=== PATIENT | female | born 1990 | race Caucasian/White ===

== ENCOUNTER 2021-09-07 10:21 | Outpatient (CLI) | payer OTHER, SELFPAY ==
[2021-09-07 13:37] LABS: SARS-CoV-2 RNA PCR Negative (Negative)
== END 2021-09-07 10:22 | disposition home or self-care (01) ==
LOC: CHSLAB 10:22
PROVIDERS: PCP Family Medicine; Visit Provider Family Medicine
DX: R05.9 Cough, unspecified (principal); Z20.822 Contact with and (suspected) exposure to COVID-19
CPT/HCPCS: C9803; U0003; U0005

== ENCOUNTER 2022-09-26 08:04 | Emergency (ER) | payer OTHER, SELFPAY ==
[2022-09-26 08:13] VITALS: BP 115/84; PULSE 71; RESP 16; TEMP 37.1; O2SAT 100
--- NOTE | 2022-09-26 08:14 | ED.ABDPAIN ---
HPI - Abdominal Pain General Chief Complaint: Abdominal Pain Stated Complaint: ABD PAIN/FEVER Time Seen by Provider: 09/26/22 08:19 Source: patient and RN notes reviewed Mode of arrival: ambulatory Limitations: no limitations History of Present Illness HPI narrative: 32 y/o female presented for c/o mid lower abdominal pain and intermittent fever for 3 days. Rates pain 3-6/10. Pain worse when up moving around, described as dull and achey. Taking ibuprofen. Denies associated flank pain, urinary complaints, constipation, n/v/d/f/c. LMP about 2 weeks ago. Related Data Allergies Allergy/AdvReac Type Severity Reaction Status Date / Time cefaclor AdvReac Mild Nausea and Verified 09/26/22 08:18 Vomiting Review of Systems Review of Systems: CONSTITUTIONAL: Denies body aches, fever, chills, or sweats. CARDIOVASCULAR: Denies chest pain, palpitations, or edema. RESPIRATORY: Denies cough or dyspnea. GASTROINTESTINAL: Denies nausea, vomiting, or diarrhea. GENITOURINARY: Denies dysuria, frequency, urgency, hematuria, flank pain SKIN: Denies rash, itching, or wounds. MUSCULOSKELETAL: Denies back pain or myalgia. [facility] Past Medical History Medical History History of chicken pox Vaginal delivery 2016, 2017, 2019 Social History Social History Smoking status: Never smoker Alcohol intake: current Comments At time of signature, I have reviewed and agree with nursing past medical, surgical, social and family history unless otherwise noted. Please see nursing chart for further information. There is no relevant family history pertinent to the presenting complaint Exam Narrative: GENERAL: Well-appearing and in no acute distress. EYES: EOMI. . ENT: Mucous membranes pink and moist. CHEST: Clear to auscultation. HEART: Regular rate and rhythm. ABDOMEN: Soft, nontender, nondistended, normal active bowel sounds. Mild suprapubic tenderness with palpation. No CVA tenderness SKIN: Warm, dry, no rash. NEURO: No focal deficits. Alert and oriented x3. Gait steady. PSYCH: Normal affect. Course Course Emergency Course: Patient is aware of diagnosis, understands and agrees to treatment plan. Anticipatory guidance given. Patient agrees to follow-up as directed and is aware of reasons to seek care at the emergency department. Portions of this record may have been created with voice recognition software Level of Care: Express Care Visit Vital Signs Vital signs: Reviewed MDM - Abdominal Pain MDM Narrative Medical decision making narrative: Patient presented for mid lower abdominal pain with fever. Results of urine reviewed with patient. Patient is well-appearing. Denies any additional symptoms. She is advised to closely monitor symptoms after starting the antibiotic and go to the ER for any worsening symptoms or concerns. Advised supportive measures. Pt is appropriate for outpt treatment and f/u Differential Diagnosis Differential diagnosis: Likely abdominal pain, acute appendicitis, calculus of kidney, constipation, gastroenteritis, small bowel obstruction and other (uti, cystitis) Discharge Plan Discharge Clinical Impression: Lower abdominal pain Patient Disposition: Home, Self-Care Condition: Stable Instructions: Urinary Tract Infection in Women (ED), Abdominal Pain (ED) Additional Instructions: Take the antibiotic as prescribed until gone. The urine will be sent of for a culture to identify what type of bacteria is causing your infection. If the culture shows that the antibiotic will not get rid of your infection, you will be notified and a new antibiotic will be called in for you. Increase water intake you will need to follow up with your PCP for further evaluation and treatment if symptoms persist. Go to the ER for worsening symptoms or concerns Prescriptions: New nitrofurantoin m
== END 2022-09-26 08:35 | disposition home or self-care (01) ==
PROVIDERS: Emergency Provider Nurse Practitioner Family; PCP Family Medicine
DX: R10.30 Lower abdominal pain, unspecified (principal)
CPT/HCPCS: 81003; 87086; 99213; G0463

== ENCOUNTER 2022-11-25 08:17 | Emergency (ER) | payer OTHER, SELFPAY ==
[2022-11-25 08:33] VITALS: BP 127/85; PULSE 77; RESP 16; TEMP 36.6; O2SAT 100
--- NOTE | 2022-11-25 08:44 | ED.URI ---
HPI - URI/Sore Throat General Chief Complaint: Upper Respiratory Infection Stated Complaint: sore throat Time Seen by Provider: 11/25/22 08:44 History of Present Illness HPI Narrative: 32 y/o female presented for c/o sore throat for about 24 hours. Denies any associated symptoms. Son tested positive for strep yesterday. Not taking anything for symptoms. Related Data Allergies Allergy/AdvReac Type Severity Reaction Status Date / Time cefaclor AdvReac Mild Nausea and Verified 11/25/22 08:43 Vomiting Review of Systems Review of Systems: CONSTITUTIONAL: Denies body aches, fever, chills, or sweats. EYES: Denies visual changes, redness, or discharge. ENT: Denies rhinorrhea, congestion, or otalgia. CARDIOVASCULAR: Denies chest pain, palpitations, or edema. RESPIRATORY: Denies dyspnea. GASTROINTESTINAL: Denies abdominal pain, nausea, vomiting, or diarrhea. SKIN: Denies rash, itching, or wounds. MUSCULOSKELETAL: Denies back pain, joint pain, or myalgia. NEUROLOGIC: Denies headache PMFSH Past Medical History Medical History History of chicken pox Vaginal delivery 2016, 2017, 2019 Social History Social History Smoking status: Never smoker Alcohol intake: current Exam Narrative: GENERAL: well-appearing, no acute distress. EYES: conjunctivae clear ENT: Mucous membranes moist. TM pearly linder with normal light reflex bilaterally; no tragal tenderness. Oropharynx erythematous without lesions. Tonsils enlarged without exudate. No drooling, no hoarseness, no trismus, uvula midline. No tripod positioning, hot potato voice, or soft palate swelling. NECK: Supple. No lymphadenopathy CHEST: Clear to auscultation, breath sounds equal. HEART: Regular rate and rhythm. No murmur heard. SKIN: Warm, dry, no rash. NEURO: Alert and oriented x3. Course Course Emergency Course: Patient is aware of diagnosis, understands and agrees to treatment plan. Anticipatory guidance given. Patient agrees to follow-up as directed and is aware of reasons to seek care at the emergency department. Portions of this record may have been created with voice recognition software Level of Care: Express Care Visit Vital Signs Vital signs: Vital Signs Temperature 97.9 F 11/25/22 08:33 Pulse Rate 77 11/25/22 08:33 Respiratory Rate 16 11/25/22 08:33 Blood Pressure 127/85 11/25/22 08:33 Pulse Oximetry 100 11/25/22 08:33 Temperature 97.9 F 11/25/22 08:33 Pulse Rate 77 11/25/22 08:33 Respiratory Rate 16 11/25/22 08:33 Blood Pressure 127/85 11/25/22 08:33 Pulse Oximetry 100 11/25/22 08:33 MDM - URI/Sore Throat MDM Narrative Medical decision making narrative: strep result reviewed with pt. Advise supportive treatments. Patient is appropriate for outpatient treatment and follow-up. Differential Diagnosis Differential diagnosis: Likely upper respiratory infection, viral infection and pharyngitis Lab Data Labs: Strep Screen Positive Group A Strep *(Reference Range: Negative)* Discharge Plan Discharge Clinical Impression: Strep pharyngitis Patient Disposition: Home, Self-Care Condition: Stable Additional Instructions: - Take the antibiotic as directed. Fever and sore throat typically resolve within one to three days. Most patients can return to work after 12 to 24 hours of antibiotic therapy, provided you are fever free and otherwise well. -Eat and drink things that are easy to swallow, like soft foods, cool liquids, tea with honey, or popsicles . -Salt water gargles and/or may use topical anesthetic ( Chloraseptic spray) or lozenges to relieve dryness or throat pain -Alternate Tylenol and ibuprofen as needed for pain and fever as directed. -Frequent hand washing or hand antique collector is one of the best ways to prevent sp
== END 2022-11-25 08:50 | disposition home or self-care (01) ==
PROVIDERS: Emergency Provider Nurse Practitioner Family; PCP Family Medicine
DX: J02.0 Streptococcal pharyngitis (principal)
CPT/HCPCS: 87880; 99213; G0463

== ENCOUNTER 2024-08-31 08:11 | Outpatient (CLI) | payer OTHER, SELFPAY ==
[2024-08-31 12:18] LABS: Basophils Absolute Auto 0.1 K/mm3 (0.0-0.1); Basophils Percent Auto 1.2 % (0.2-1.2); Eosinophils Absolute Auto 0.1 K/mm3 (0-0.3); Eosinophils Percent Auto 2.2 % (0-4.4); Hematocrit 42.2 % (37.0-47.0); Hemoglobin 13.9 g/dL (12.0-15.0); Immature Granulocyte Absolute 0.01 K/mm3 (0.00-0.031); Immature Granulocyte Percent A 0.2 % (0-0.5); Lymphocytes Absolute Auto 1.71 K/mm3 (0.9-3.2); Mean Corpuscular HGB Conc 32.9 g/dl (32-36); Mean Corpuscular Hemoglobin 30.8 pg (26-34); Mean Corpuscular Volume 93.6 fl (80-100); Monocytes Absolute Auto 0.4 K/mm3 (0.1-0.6); Monocytes Percent Auto 10.1 % (2.6-8.5); Neutrophils Absolute Auto 1.9 K/mm3 (1.3-6.7); Neutrophils Percent Auto 45.3 % (45.5-73.1); Platelet Count Result 231 k/mm3 (150-375); Red Blood Count 4.51 M/mm3 (4.2-5.4); Red Cell Distribution Width 11.9 % (11.5-14.5); White Blood Count 4.2 K/mm3 (4.5-10.0)
[2024-08-31 12:53] LABS: Alanine Aminotransferase 51 U/L (6-35); Albumin Level 4.4 g/dL (3.5-5.1); Alkaline Phosphatase 55 U/L (38-126); Anion Gap 2 mmol/L (4-12); Aspartate Amino Transferase 75 U/L (14-36); Bilirubin,Total 0.6 mg/dL (0.2-1.3); Blood Urea Nitrogen 13 mg/dL (7-17); Carbon Dioxide 31 mmol/L (22-30); Chloride 105 mmol/L (98-107); Cholesterol 242 mg/dL (0-200); Estimated Glomerular Filt Rate > 60; Glucose 85 mg/dL (65-110); HDL Direct 75 mg/dL; Potassium 4.1 mmol/L (3.4-5.0); Sodium 138 mmol/L (137-145); Triglycerides 119 mg/dL (<150)
[2024-08-31 13:00] LABS: Iron 157 ug/dL (37-170)
[2024-08-31 13:04] LABS: LDL Cholesterol Direct 110 mg/dL
[2024-08-31 13:10] LABS: Percent Iron Saturation 53 % (20-50)
[2024-08-31 17:48] LABS: Free T4 Free Thyroxine Reflex 0.84 ng/dL (0.78-2.19)
[2024-08-31 19:04] LABS: Total Triiodothyronine (T3) 1.63 NG/ML (0.97-1.69)
--- OUTSIDE RECORDS SUMMARY | 2024-09-07 15:10 | XMS_ITS | Referral Summary ---
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) 05/26/2015 Social History Tobacco Use Types Packs/Day Years Used Date Smoking Tobacco: Never Smokeless Tobacco: Never Personal Safety Answer Date Recorded Getting School Help Needed Not on file 11/04 Comments Unknown Sex and Gender Information Value Date Recorded Sex Assigned at Not on file Legal 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 Gender Identity Not on file Sexual Orientation Not on file Last Filed Vital Signs Vital Sign Reading Time Taken Comments Blood Pressure 115/77 01/20/2022 2:04 PM CDT Pulse 79 01/20/2022 2:04 PM CDT Temperature 37.1 ??C (98.8 ??F) 01/20/2022 2:04 PM CD T Respiratory Rate 18 01/20/2022 2:04 PM CDT Oxygen Saturation 100% 01/20/2022 2:04 PM CDT Inhaled Oxygen Concentration - - Weight 59.9 kg (132 lb) 01/20/2022 2:04 PM CDT Height 162.6 cm (5' 4 ) 01/20/2022 2:04 PM CDT Body Mass Index 22.66 01/20/2022 2:04 PM CDT Plan of Treatment Not on file Insurance [facility] CHOICE PLUS [address] Care Teams Side Show Entertainer Relationship Specialty Start Date End Date Kolton Chavarria MD PCP - General Family Medicine 01/20/22
--- OUTSIDE RECORDS SUMMARY | 2024-09-07 15:10 | XMS_ITS | Encounter Summary ---
Author Organization [facility] Address [address] [address] Care Team Providers Care Instrument Maker Name Role Phone Kolton Chavarria MD Primary Care Provider [phone] [phone] Reason for Visit * Reason Onset Date Comments Covid-19 Home Monitoring 01/27/2022 Daily C all Encounter Details Date Type Department Care Team (Late st Contact Info) Description 01/27/2022 Telephone [facility] Accountable Care Organization [address] [place] [id number] Carly Romero Covid-19 Home Monitoring (Daily Call) Social History Tobacco Use Types Packs/Day Years Used Date Smoking Tobacco: Never Smokeless Tobacco: Never Comments Unknown Sex and Gender Information Value Date Recorded Sex Assigned at Not on file 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 COVID-19 Symptom questionnaire was not completed today, because the patient could not be reached. Next Program Call Due: 01/28 [facility] x1 documented in this encounter Plan of Treatment Not on file documented as of this encounter Visit Diagnoses Not on filedocumented in this encounter Additional Health Concerns Infection Onset Date Last Indicated Resolved Time COVID19 01/20/2022 01/20/2022 01/30/2022 3:07 AM CDT documented as of this encounter Care Teams Instrument Maker Relationship Specialty Start Date End Date Kolton Chavarria MD PCP - General Family Medicine 01/20/22 documented as of this encounter
--- OUTSIDE RECORDS SUMMARY | 2024-09-07 15:10 | XMS_ITS | Encounter Summary ---
Author Organization [facility] Address [address] [place] [address] Care Team Providers Care Facilities Clerk Name Role Phone Unavailable Primary Care Provider Unavailabl e Reason for Visit * Reason Comments Imm Inj Encounter Details Date Type Department Care Team (Late st Contact Info) Description 12/05/2018 7:00 PM CDT Office Visit [facility] [address] [phone] Provider, [facility] Need for vaccination (Primary Dx) Social History Tobacco Use Types Packs/Day Years Used Date Smoking Tobacco: Never Assessed Sex and Gender Information Value Date Recorded Sex Assigned at Not on file Gender Identity Not on file Sexual Orientation Not on file documented as of this encounter Progress Notes * Ryne Gonzalez APRN-CNP - 12/05/2018 7:01 PM CDT Immunization History Administered Date(s) Administered ??? Tdap 12/05/2018 Pt tolerated well documented in this encounter Plan of Treatment Not on file documented as of this encounter Visit Diagnoses Diagnosis Need for vaccination- Primary Need for prophylactic vaccination and inoculation against unspecified single disease documented in this encounter
--- OUTSIDE RECORDS SUMMARY | 2024-09-07 15:10 | XMS_ITS | Patient Health Summary ---
Author Organization [facility] Address [address] [facility] [place] [address] Care Team Providers Care Senior Housekeeper Name Role Phone Unavailable Primary Care Provider Unavailabl e Note from [facility],non-owned Affiliates and Associated Physician Practices is amultiple site organization consisting of ambulatory clinics and hospital sitesin [place], [place], [place] and [place]. This disclosure is being madepursuant to the Care Everywhere program and may not contain all information available regarding this patient. Last updated 18.[facility] Immunizations * TDAP (7yrs+)(Given 12/05/2018) Social History Tobacco Use Types Packs/Day Years Used Date Smoking Tobacco: Never Assessed Sex and Gender Information Value Date Recorded Sex Assigned at Not on file Gender Identity Not on file Sexual Orientation Not on file
--- OUTSIDE RECORDS SUMMARY | 2024-09-07 15:10 | XMS_ITS | Encounter Summary ---
Author Organization [facility] Address [address] [place] [address] Care Team Providers Care Package Sorter Name Role Phone Kolton Chavarria MD Primary Care Provider [phone] Reason for Visit * Reason Onset Date Comments Covid-19 Home Monitoring 01/30/2022 Daily c all Encounter Details Date Type Department Care Team (Late st Contact Info) Description 01/30/2022 Telephone [facility] Accountable Care Organization [address] [place] [phone] Trixie Ramos LPN [address] [place] [address] [facility] [address] [place] [address] Covid-19 Home Monitoring (Daily call ) Social History Tobacco Use Types Packs/Day Years Used Date Smoking Tobacco: Never Smokeless Tobacco: Never Comments Unknown Sex and Gender Information Value Date Recorded Sex Assigned at Not on file 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 We recommend that they are scheduled for a telemedicine evaluation with a primary care provider within 3 days of completion of the program. For questions or concerns about the home monitoring program, please contact . documented in this encounter Plan of Treatment Not on file documented as of this encounter Visit Diagnoses Not on filedocumented in this encounter Additional Health Concerns Infection Onset Date Last Indicated Resolved Time COVID19 01/20/2022 01/20/2022 01/30/2022 3:07 AM CDT COVID: Recovered Comment:Added based on recent COVID infection. 01/30/2022 01/30/2022 05/30/2022 3:06 AM C DT documented as of this encounter Care Teams Package Sorter Relationship Specialty Start Date End Date Kolton Chavarria MD PCP - General Family Medicine 01/20/22 documented as of this encounter
--- OUTSIDE RECORDS SUMMARY | 2024-09-07 15:10 | XMS_ITS | Referral Summary ---
Author Organization [facility] Address [address] [place] [address] Care Team Providers Care Medical I D Sales Name Role Phone Unavailable Primary Care Provider Unavailabl e Source Comments [facility],non-owned Affiliates and Associated Physician Practices is amultiple site organization consisting of ambulatory clinics and hospital sitesin [place], [place], [place] and [place]. This disclosure is being madepursuant to the Care Everywhere program and may not contain all information available regarding this patient. Last updated 18.[facility] Immunizations Name Administration Dates Next Due TDAP (7yrs+) 12/05/2018 Social History Tobacco Use Types Packs/Day Years Used Date Smoking Tobacco: Never Assessed Sex and Gender Information Value Date Recorded Sex Assigned at Not on file Gender Identity Not on file Sexual Orientation Not on file Plan of Treatment Not on file
--- OUTSIDE RECORDS SUMMARY | 2024-09-07 15:10 | XMS_ITS | Encounter Summary ---
Author Organization [facility] Address [address] [place] [address] Care Team Providers Care Flame Brazing Machine Operator Name Role Phone Kolton Chavarria MD Primary Care Provider [phone] Reason for Visit * Reason Onset Date Comments Covid-19 Home Monitoring 01/26/2022 Daily c all Encounter Details Date Type Department Care Team (Late st Contact Info) Description 01/26/2022 Telephone [facility] Accountable Care Organization [address] [place] [phone] Trixie Ramos LPN [address] [place] [address] [facility] [address] [place] [address] Covid-19 Home Monitoring (Daily call ) Social History Tobacco Use Types Packs/Day Years Used Date Smoking Tobacco: Never Smokeless Tobacco: Never Comments Unknown Sex and Gender Information Value Date Recorded Sex Assigned at Not on file 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 : No This patient has enrolled in the PHONE ONLY version of COVID-19 Home Monitoring Program. COVID-19 Symptom questionnaire was completed today. Symptoms were addressed to be Mild. Escalation was not needed. Next Program Call Due: 01/27 * Telephone Encounter - Trixie Ramos LPN - 01/26/2022 10:14 AM CDT COVID Home Monitoring Unable to Reach Called patient for home monitoring MA assessment Unable to reach patient. Patient will receive follow up call today documented in this encounter Plan of Treatment Not on file documented as of this encounter Visit Diagnoses Not on filedocumented in this encounter Additional Health Concerns Infection Onset Date Last Indicated Resolved Time COVID19 01/20/2022 01/20/2022 01/30/2022 3:07 AM CDT documented as of this encounter Care Teams Flame Brazing Machine Operator Relationship Specialty Start Date End Date Kolton Chavarria MD PCP - General Family Medicine 01/20/22 documented as of this encounter
--- OUTSIDE RECORDS SUMMARY | 2024-09-07 15:10 | XMS_ITS | Encounter Summary ---
Author Organization [facility] Address [address] [facility] [address] [facility] [address] [place] [address] Care Team Providers Care Steam Plant Operator Name Role Phone Kolton Chavarria MD Primary Care Provider [phone] Reason for Visit * Reason Onset Date Comments Covid-19 Home Monitoring 01/25/2022 Daily c all Encounter Details Date Type Department Care Team (Late st Contact Info) Description 01/25/2022 Telephone [facility] Accountable Care Organization [address] [place] [phone] Trixie Ramos LPN [address] [place] [address] [facility] [address] [place] [address] Covid-19 Home Monitoring (Daily call ) Social History Tobacco Use Types Packs/Day Years Used Date Smoking Tobacco: Never Smokeless Tobacco: Never Comments Unknown Sex and Gender Information Value Date Recorded Sex Assigned at Not on file 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 COVID-19 Symptom questionnaire was not completed today, because the patient could not be reached. Next Program Call Due: 01/26 [facility] Day 1 * Telephone Encounter - Trixie Ramos LPN - 01/25/2022 9:54 AM CDT COVID Home Monitoring Unable to [...] documented as of this encounter Care Teams Steam Plant Operator Relationship Specialty Start Date End Date Kolton Chavarria MD PCP - General Family Medicine 01/20/22 documented as of this encounter
--- OUTSIDE RECORDS SUMMARY | 2024-09-07 15:10 | XMS_ITS | Encounter Summary ---
Author Organization [facility] Address [address] [facility] [address] [place] [address] Care Team Providers Care Enterprise Architect Manager Name Role Phone Kolton Chavarria MD Primary Care Provider [phone] Reason for Visit * Reason Onset Date Comments Covid-19 Home Monitoring 01/29/2022 Daily c all Encounter Details Date Type Department Care Team (Late st Contact Info) Description 01/29/2022 Telephone [facility] Accountable Care Organization [address] [place] [phone] Trixie Ramos LPN [address] [place] [address] [facility] [address] [place] [address] Covid-19 Home Monitoring (Daily call ) Social History Tobacco Use Types Packs/Day Years Used Date Smoking Tobacco: Never Smokeless Tobacco: Never Comments Unknown Sex and Gender Information Value Date Recorded Sex Assigned at Not on file 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 COVID-19 Symptom questionnaire was not completed today, because the patient could not be reached. Next Program Call Due: 01/30 documented in this encounter Plan of Treatment Not on file documented as of this encounter Visit Diagnoses Not on filedocumented in this encounter Additional Health Concerns Infection Onset Date Last Indicated Resolved Time COVID19 01/20/2022 01/20/2022 01/30/2022 3:07 AM CDT documented as of this encounter Care Teams Enterprise Architect Manager Relationship Specialty Start Date End Date Kolton Chavarria MD PCP - General Family Medicine 01/20/22 documented as of this encounter
--- OUTSIDE RECORDS SUMMARY | 2024-09-07 15:10 | XMS_ITS | Data Portability ---
Author Organization [facility] Address [address] [place] [address] Care Team Providers Care Wallpaper Remover Steam Name Role Phone PAULINA NO Primary Care Provider Assessment Encounter Date Assessment Date Assessment LastModified by Organization Details LastModified Time 11/20/2023 11/20/2023 Annual gynecological exam performed. Patient will come back in a year unless there are new symptoms. [email or web address] Not available 11/20/2023 16:48:46 Plan of Treatment Reminders Order Date Submit Date Provider Last Modified By Organization Details Last Modified Time Details Appointments None recorded . Lab None recorded . Referral None recorded . Procedures None recorded . Surgeries None recorded . Imaging None recorded . Medication Orders Jennifer (28) 3 mg-0.02 mg tablet 020 06/16/20 20 [facility], [address] [place] [address], [address], 2 16:03:03 Ortho Tri-Cycl en (28) 0.18 mg(7)/0. 215 mg(7)/0. 25 mg(7)-35 mcg tablet 021 08/07/20 21 [email or web address] [facility], [address] [place] [address], [address], 4 16:52:11 Patient TargetsNo targets recorded. Patient InstructionsNo instructions recorded. Reason for Referral None Reported. Results Created Date Observation Date Name Description Value Unit Range Abnormal Flag Note LastModifiedBy Organization Detail LastModifiedTime 06/16/20 20 06/20/2020 pap, LB Pap test thin prep Negati ve for Intrae pithel ial Lesion or Malign brittany normal ACCES YOSI #: [id number] Sour e: Cervi josef/E ndoce rvica l LMP: 2019 Date Taken : 06/16 Speci men Type: ThinP rep Vial Date Repor elier: 06/20 Clini josef Data: Cytot ech: Willis Ortiz x, CT( CP) Date Repor elier: 06/19 Speci men Adequ acy: Satis facto ry for evalu ation Endoc ervic al/tr ansfo rmati on zone compo nent prese nt Gener al Categ oriza tion: NEGAT KYUNG FOR INTRA EPITH ELIAL LESIO N OR MALIG MYRNA This speci men has been christina zed by the ThinP rep Imagi ng Syste m, an inter activ e compu ter syste m which lanre ts the lab in the scree [place] of ThinP rep Pap Test slide sHugo sanchez imagi ng, the slide was revie wed by a Cytot echno logis t and/o r Patho logis t. D N A A S S A Y S R E P O R T TEST NAME RESUL TS ----- ---- ----- -- HPV High Risk Scree n (TMA) ThinP rep Vial The human papil lomav irus (HPV) High Risk Scree n is an FDA-a pprov ed in-vi tro ampli fied nucle ic acid test for the quali tativ e detec tion of E6/E7 viral mRNA. Resul ts shoul d be corre lated with patie nt prese ntati on, histo ry, cervi josef cytol ogy and other clini josef and labor atory findi ngs. See https ://Auxogyn/s ites/ defau lt/fi les/2 018-0 3/AW- 82468 _002_ 01.pd f for furth er infor matio n. Test perfo rmed by [facility], d/b/a [facility]illa, [address], [place] [address] , Louie Fink ra, DO, [facility] [employer]. HPV High Risk *HPV NOT DETEC ELIER (TYPE S 16, 18, 31, 33, 35, 39, 45, 51, 52, 56, 58, 59, 66, 68) *HPV: The human papil lomav irus (HPV) High Risk Juan real is an FDA-a pprov ed in-vi tro ampli fied nucle ic acid test for the quali tativ e detec tion of E6/E7 viral mRNA. [facility] ts shoul d be corre lated with patie nt prese ntati on, histo ry, cervi josef cytol ogy and other clini josef and labor atory findi ngs. See https ://Auxogyn/s ites/ defdevin lt/fi les/2 018-0 3/AW- 50667 _002_ 01.pd f for [facility] er infor jeannette n. Test perfo rmed by [facility], d/b/a [facility], [address], [place] [address] , Louie Fink ra, DO, [facility] [employer]. End of Repor t Techn ical servi darryl provi ded by [facility], d/b/a [facility], [address] [place] [address] Rosalio Groves MD, Labor [employer]. Case revie wed and diagn osis rende red at [facility], d/b/a [facility], [address] [place] [address] Rosalio Groves MD, Labor [employer]. CONFI DENTI AL Not Available [facility] ([facility]) [address], [place], [address], 06/20/2020 08:29:12 06/16/20 20 06/17/2020 HPV DNA, high- risk HPV high risk NOT DETECT ED normal Not Available [facility] ([facility]) [address], [place], [address], 06/20/2020 08:29:12 08/07/20 21 08/07/2021 IMAGE GUIDE D PAP AND HPV REGAR DLESS image guided Pap, HPV regardless of Pap result SEE RESULT S BELOW CASE REPOR T: Cytol ogy Gynec ologi josef Repor t Case: [id number] Autho nessa g Provi chad: Fernanda Amato, [facility] Colle cted: 08/07 1531 Order ing Locat ion: [place] [facility] Recei marline: 08/08 0123 First Scree n: Arturo Shore am, CT Speci men: Juan coyne Pap - Image d, Cervi x STATE MENT OF ADEQU ACY: Satis facto ry for evalu ation Trans forma tion zone compo nent prese nt FINAL DIAGN OSIS: Negat kyung for Intra epith elial Tim real or Murray sparrow (NIL) . Elect kj kauffman jewel d by Arturo Shore am, CT on 2020 at 6:22 AM ----- ----- ----- ----- ----- ----- ----- ----- ----- ----- ----- ----- ----- ----- ----- ----- ----- ---- HPV RESUL TS: HPV mRNA E6/E7 : No HPV mRNA Detec elier NOTE: This high risk HPV mRNA assay detec ts fourt een high- risk HPV types (16, 18, 31, 33, 35, 39, 45, 51, 52, 56, 58, 59, 66, 68) witho ut diffe renti ation . COMME NT: Note: This speci men was revie wed by a Cytot echno logis t and/o r Patho logis t (as indic ated in this repor t) after evalu ation using the Thinp rep Imagi ng Syste m. CLINI JOSEF INFOR MATIO N: Menst rual Statu s: LMP (if appli cable ): Clini josef Histo ry/Pr eviou s Pap: Type of Neopl gloria (if appli cable ): Signi fican t Clini josef Findi ngs: Other Histo ry: Hormo roberto (if appli cable ): PAP EDUCA JAKE L NOTE: The Pap Test is a scree [place] test with an inher ent false negat kyung rate. Liqui d-bas e sampl ing may decre ase, but will not elimi ken, false negat kyung resul ts. A negat kyung resul t does not precl ude the prese nce and/o r devel opmen t of disea se, since the prese nce of abnor mal cells in the sampl e depen ds on the locat ion of the lesio n and sampl ing techn ique. Luly nued regul ar scree [place] is the best metho d of cance r preve ntion . If repor elier cytol ogic findi ng do not corre late with physi josef and/o r histo rical findi ngs, furth er inves tigat ion is recom beatriz d, as clini caryn rodriguez nted. Not Available [facility] ([facility]) [address], [place], [address], 08/14/2021 07:24:45 11/20/19 24 11/20/2023 IMAGE GUIDE D PAP AND HPV REGAR DLESS image guided Pap, HPV regardless of Pap result SEE RESULT S BELOW CASE REPOR T: Cytol ogy Gynec ologi josef Repor t Case: [id number] Autho nessa g Provi chad: Evens Vega Colle cted: 11/19 1709 CREATIVE SERVICES WRITER Order ing Locat ion: [place] Patho log[facility] Recei marline: 11/20 0319 First Scree n: Sami shen, Zully , CT Speci men: Scree [place]ford Pap - Image d, Cervi x STATE MENT OF ADEQU ACY: Satis facto ry for evalu ation Trans forma tion zone compo nent prese nt FINAL DIAGN OSIS: Negat kyung for Intra epith elial Lesio n or Murray sparrow (NIL) . Elect kj kauffman jewel d by Zully Sahni , CT on 2023 at 8:08 AM ----- ----- ----- ----- ----- ----- ----- ----- ----- ----- ----- ----- ----- ----- ----- ----- ----- ---- HPV RESUL TS: HPV mRNA E6/E7 : No HPV mRNA Detec elier NOTE: This high risk HPV mRNA assay detec ts fourt een high- risk HPV types (16, 18, 31, 33, 35, 39, 45, 51, 52, 56, 58, 59, 66, 68) witho ut diffe renti ation . COMME NT: This speci men was revie wed by a Cytot echno logis t and/o r Patho logis t (as indic ated in this repor t) after evalu ation using the Thinp rep Imagi ng Syste m. CLINI JOSEF INFOR MATIO N: Menst rual Statu s: LMP (if appli cable ): Clini josef Histo ry/Pr eviou s Pap: Type of Neopl gloria (if appli cable ): Signi fican t Clini josef Findi ngs: Other Histo ry: Hormo roberto (if appli cable ): PAP EDUCA JAKE L NOTE: The Pap Test is a scree [place] test with an inher ent false negat kyung rate. Liqui d-bas ed sampl ing may decre ase, but will not elimi ken, false negat kyung resul ts. A negat kyung resul t does not precl ude the prese nce and/o r devel opmen t of disea se, since the prese nce of abnor mal cells in the sampl e depen ds on the locat ion of the lesio n and sampl ing techn ique. Luly nued regul ar scree [place] is the best metho d of cance r preve ntion . If repor elier cytol ogic findi ng do not corre late with physi josef and/o r histo rical findi ngs, furth er inves tigat ion is recom beatriz brooks, as abhijiti caryn sheetsed. Not Available [facility] (Lab) [address], [place], [address], 11/25/2023 09:11:36 Result Notes None recorded. Problems Name Problem SNOMED Code Status Onset Date Resolution Date Notes Provider Name and Address Organization Details Recorded Time Pregnanc y, childbir th and puerperi um finding Completed 201408/07/2021 Encounte r for supervis ion of normal first pregnanc y, third trimeste r;Record ed Elsewher e: No Locat ion: [facility] S ource: EHR Machine Clipper abhinav: N Smithati ce ID: 0001 Dilan lable Time: 03:45:00 PM Luz Hong [facility] 1 10:18:[address] Concept Completed 201808/07/2021 Encntr for general adult medical exam w/o abnormal findings ;Recorde d Elsewher e: No Locat ion: [facility] S ource: EHR Machine Clipper abhinav: N Smithati ce ID: 0001 Dilan lable Time: 11:00:00 AM Luz parr [facility] 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 1 10:18:08 Gestatio n period, 24 weeks [id number] Completed 201608/07/2021 24 weeks gestatio n of pregnanc y;Record ed Elsewher e: No Locat ion: [facility] S ource: EHR Machine Clipper abhinav: Denzel Anaya ce ID: 0001 Dilan lable Time: 02:15:00 PM Luz parr, [facility] 1 10:18:05 Primigra jes [id number] Completed 201408/07/2021 Supervis ion of normal first pregnanc y;Record ed Elsewher e: No [facility] N Smithati ce ID: 0001 Dilan lable Time: 04:30:00 PM Luz parr, [facility] 1 10:17:04 Pregnanc y test negative [id number] Completed 201808/07/2021 Encounte r for pregnanc y test, result negative ;Recorde d Elsewher e: No Locat ion: [facility] Denzel Anaya ce ID: 0001 Dilan lable Time: 04:00:00 PM Luz parr, [facility] 1 10:17:54 Disorder of pregnanc y Completed 201808/07/2021 Polyhydr amnios, third trimeste r, not applicab le or unsp;Rec orded Elsewher e: No Locat ion: [facility] Denzel Boneti ce ID: 0001 Dilan lable Time: 03:00:00 PM Luz parr, [facility] 1 10:17:39 Normal pregnanc y in multigra jes [id number] 4106 Completed 201608/07/2021 Encounte r for supervis ion of other normal pregnanc y, third trimeste r;Record ed Elsewher e: No Locat ion: [facility] S ource: EHR Machine Clipper abhinav: Denzel Boneti ce ID: 0001 Dilan lable Time: 03:15:00 PM Luz parr, [facility] 10:18:25 Cytologi c finding [id number] Completed 201308/07/2021 Papanico laou smear of cervix with high grade squamous intraepi thelial lesion (HGSIL); Recorded Elsewher e: No Locat ion: [facility] S ource: EHR Machine Clipper abhinav: N Smithati ce ID: 0001 Dilan lable Time: 03:00:00 [facility] 10:18:30 Antenata l screenin g Completed 201408/07/2021 ANTENATA L SCREENIN G NEC;Tio rded Elsewher e: No Locat ion: [facility] S ource: EHR Machine Clipper abhinav: N Smithati ce ID: 0001 Dilan lable Time: 10:45:00 AM Luz Hong [facility] 10:17:48 Clinical finding Completed 201608/07/2021 Unspecif ied placenta l disorder , third trimeste r;Record ed Elsewher e: No Locat ion: [facility] S ource: EHR Machine Clipper abhinav: N Smithati ce ID: 0001 Dilan lable Time: 03:00:00 PM [facility] 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 10:18:03 Gestatio n period, 31 weeks [id number] Completed 201608/07/2021 31 weeks gestatio n of pregnanc y;Record ed Elsewher e: No Locat ion: [facility] S ource: EHR Machine Clipper abhinav: N Smithati ce ID: 0001 Dilan lable Time: 04:00:00 PM Luz parr [facility] 10:18:40 anatomy study Completed 201408/07/2021 [facility] SURVEY;R ecorded Elsewher e: No Locat ion: [facility] S ource: EHR Machine Clipper abhinav: N Practi ce ID: 0001 Dilan lable Time: 02:30:00 PM Luz parr [facility] 10:17:58 Gestatio n period, 38 weeks [id number] Completed 201808/07/2021 38 weeks gestatio n of pregnanc y;Record ed Elsewher e: No Locat ion: [facility] S ource: EHR Machine Clipper abhinav: N Smithati ce ID: 0001 Dilan lable Time: 03:00:00 PM Luz parr, [facility] 10:17:10 Diet educatio n Completed 201408/07/2021 Dietary counseli ng and surveill ance;Rec orded Elsewher e: No Locat ion: [facility] S ource: EHR Machine Clipper abhinav: N Smithati ce ID: 0001 Dilan lable Time: 10:45:00 AM Luz parr, [facility] 10:17:02 Dietary manageme nt surveill ance Completed 201408/07/2021 Dietary counseli ng and surveill ance;Rec orded Elsewher e: No Locat ion: [facility] S ource: EHR Machine Clipper abhinav: N Practi ce ID: 0001 Dilan lable Time: 10:45:00 AM Luz parr, [facility] 10:18:16 Pregnanc y detectio n examinat ion Completed 201708/07/2021 Encounte r for pregnanc y test, result positive ;Recorde d Elsewher e: No Locat ion: [facility] S ource: EHR Machine Clipper abhinav: N Smithati ce ID: 0001 Dilan lable Time: 01:00:00 PM Luz parr [facility] 10:18:[address] Concept Completed 201808/07/2021 Matern care for abnlt fetl hrt rate or rhym, 3rd tri, unsp;Rec orded Elsewher e: No [facility] our[facility]: EHR Machine Clipper abhinav: N Smithati ce ID: 0001 Dilan lable Time: 03:15:00 PM Luz Hong [facility], [facility] 10:17:[address] Concept Completed 201608/07/2021 Maternal care for oth abnormal ity and damage, unsp;Rec orded Elsewher e: No [facility]: E[facility] Machine Clipper abhinav: N Smithati ce ID: 0001 Dilan lable Time: 08:00:00 AM Luz parr [facility] 10:17:33 Rubella screenin g status [id number] Completed 201708/07/2021 Encounte r for antenata l screenin g, unspecif ied;Tio rded Elsewher e: No [facility]: EHR Machine Clipper abhinav: N Smithati ce ID: 0001 Dilan lable Time: 02:45:00 PM Luz parr, [facility] 10:17:50 Uterine size for dates discrepa ncy Completed 201808/07/2021 Uterine size-mars e discrepa ncy, third trimeste r;Record ed Elsewher e: No Locat ion: [facility] S ource: EHR Machine Clipper abhinav: N Practi ce ID: 0001 Dilan lable Time: 04:15:00 PM Luz parr [facility] 10:17:31 Gestatio n period, 32 weeks [id number] Completed 201408/07/2021 32 weeks gestatio n of pregnanc y;Record ed Elsewher e: No [facility] our[facility]: EHR Machine Clipper abhinav: N Héctor ce ID: 0001 Dilan lable Time: 10:45:00 AM Luz parr, [facility] 10:18:50 Venereal disease screenin g Completed 201308/07/2021 Screenin g examinat ion for venereal disease; Recorded Elsewher e: No Locat ion: [facility] S ource: EHR Machine Clipper abhinav: Denzel Anaya ce ID: 0001 Dilan lable Time: 05:15:00 PM Luz parr, [facility] 10:17:21 Low risk human papillom avirus deoxyrib onucleic acid detected in specimen from cervix [id number] 843841 Completed 201708/07/2021 Cervical low risk human papillom avirus (HPV) DNA test positive ;Recorde d Elsewher e: No Locat ion: [facility] S ource: EHR Machine Clipper abhinav: N Héctor ce ID: 0001 Dilan lable Time: 01:00:00 PM Luz parr [facility] 10:17:14 Known OR suspecte d abnormal ity affectin g manageme nt of mother Completed 201408/07/2021 Other known or suspecte d abnormal ity, not elsewher e classifi ed, affectin g manageme nt of mother, antepart um conditio n or complica tion;Rec orded Elsewher e: No Locat ion: [facility] S ource: EHR Machine Clipper abhinav: N Héctor ce ID: 0001 Dilan lable Time: 11:00:00 AM Luz parr [facility] 10:18:41 Speciali zed medical examinat ion Completed 201308/07/2021 Routine gynecolo gical examinat ion;Prac lynda ID: 0001 Luz parr [facility] 10:18:32 Speciali zed medical examinat ion Completed 201308/07/2021 Other specifie d chlamydi al diseases ;Practic e ID: 0001 Luz Hong [facility] 10:18:34 Screenin g for malignan t neoplasm of cervix Completed 201308/07/2021 Pap Smear;Pr actice ID: 0001 Luz Hong [facility] 10:17:24 Cytologi c finding [id number] Completed 201408/07/2021 Pap Abnormal LGSIL;Pr actice ID: [address] [facility] 10:18:29 Amenorrh ea [id number] Completed 201408/07/2021 AMENORRH EA;Pract ice ID: [address] [facility] 10:17:12 Gestatio n period, 28 weeks [id number] Completed 201608/07/2021 28 weeks gestatio n of pregnanc y;Record ed Elsewher e: No Locat ion: [facility] S ource: EHR Machine Clipper abhinav: N Practi ce ID: 0001 Dilan lable Time: 02:15:00 PM Luz parr [facility] 10:18:53 Abnormal cervical Papanico laou smear [id number] Completed 201408/07/2021 Other abnormal papanico laou smear of cervix and cervical HPV;Tio rded Elsewher e: No [facility]at [facility] our[facility]: EHR Machine Clipper abhinav: N Héctor ce ID: 0001 Dilan lable Time: 10:00:00 AM Luz [place] karolyn, [facility] 10:18:20 Lochia finding Completed 201608/07/2021 Encounte r for routine postpart um follow-u p;Record ed Elsewher e: No Locat ion: [facility] S ource: EHR Machine Clipper abhinav: N Smithati ce ID: 0001 Dilan lable Time: 10:45:00 AM Luz Hal parr, [facility] 10:18:11 High grade squamous intraepi thelial lesion on cervical Papanico laou smear [id number] Completed 201508/07/2021 High grade intrepit h lesion cyto smr crvx (HGSIL); Recorded Elsewher e: No Locat ion: [facility] S ource: EHR Machine Clipper abhinav: N Héctor ce ID: 0001 Dilan lable Time: 02:30:00 PM Luz Hal parr, [facility] 10:18:38 Human papillom avirus deoxyrib onucleic acid detected , high risk on cervical specimen [id number] Completed 201808/07/2021 Cervical high risk HPV DNA test positive ;Recorde d Elsewher e: No Locat ion: [facility] S ource: EHR Machine Clipper abhinav: N Smithati ce ID: 0001 Dilan lable Time: 04:00:00 PM Luz Hal parr, [facility] 10:18:47 Single live [id number] Completed 201808/07/2021 Single live ;Re corded Elsewher e: No Locat ion: [facility] S ource: EHR Machine Clipper abhinav: N Smithati ce ID: 0001 Dilan lable Time: 03:00:00 PM Luz parr, [facility] 1 10:17:19 Clinical finding Completed 201608/07/2021 Unspecif ied placenta l disorder , second trimeste r;Record ed Elsewher e: No [facility]: EHR Machine Clipper abhinav: N Practi ce ID: 0001 Dilan lable Time: 02:15:00 PM Luz parr, [facility] 10:17:41 Pregnanc y test positive [id number] Completed 201408/07/2021 Pregnanc y examinat ion or test, positive result;R ecorded Elsewher e: No Locat ion: [facility] S ource: EHR Machine Clipper abhinav: N Practi ce ID: 0001 Dilan lable Time: 04:15:00 PM Luz Hogn [facility], [facility] 10:17:52 Gestatio n period, 35 weeks [id number] Completed 201608/07/2021 35 weeks gestatio n of pregnanc y;Record ed Elsewher e: No Locat ion: [facility] S ource: EHR Machine Clipper abhinav: N Practi ce ID: 0001 Dilan lable Time: 03:00:00 PM Luz parr, [facility] 1 10:18:52 Atypical squamous cells of undeterm ined signific ance on cervical Papanico laou smear [id number] Completed 201808/07/2021 Atyp squam cell of undet signfc cyto smr crvx (ASC-US) ;Recorde d Elsewher e: No Locat ion: [facility] S ource: EHR Machine Clipper abhinav: N Practi ce ID: 0001 Dilan lable Time: 04:00:00 PM Luz parr, [facility] 1 10:18:21 finding Completed 201608/07/2021 Matern care for oth or susp poor fetl grth, third tri, unsp;Rec orded Elsewher e: No Locat ion: [facility] S ource: EHR Machine Clipper abhinav: N Héctor ce ID: 0001 Dilan lable Time: 04:00:00 PM Luz parr [facility] 10:17:35 Gestatio n period, 37 weeks [id number] Completed 201808/07/2021 37 weeks gestatio n of pregnanc y;Record ed Elsewher e: No Locat ion: [facility] S ource: EHR Machine Clipper abhinav: N Smithati ce ID: 0001 Dilan lable Time: 03:00:00 PM Luz parr [facility] 10:18:18 Antenata l screenin g for malforma tion Completed 201808/07/2021 Encounte r for antenata l screenin g for malforma tions;Re corded Elsewher e: No Locat ion: [facility] S ource: EHR Machine Clipper abhinav: N Smithati ce ID: 0001 Dilan lable Time: 02:30:00 PM Luz parr [facility] 10:18:45 Ultrason ography Completed 201408/07/2021 Antenata l screenin g for malforma tion using ultrason ics;Tio rded Elsewher e: No [facility]: EHR Machine Clipper abhinav: N Smithati ce ID: 0001 Dilan lable Time: 11:00:00 AM Luz parr [facility] 10:17:16 Congenit al malforma tion [id number] Completed 201408/07/2021 Antenata l screenin g for malforma tion using ultrason ics;Tio rded Elsewher e: No Locat ion: [facility] S ource: EHR Machine Clipper abhinav: N Smithati ce ID: 0001 Dilan lable Time: 11:00:00 AM Luz parr, [facility] 10:18:00 Gestatio n period, 36 weeks [id number] Completed 201808/07/2021 36 weeks gestatio n of pregnanc y;Practi ce ID: 0001 Luz parr, [facility] 10:18:36 Gestatio n period, 30 weeks [id number] Completed 201408/07/2021 30 weeks gestatio n of pregnanc y;Record ed Elsewher e: No Locat ion: [facility] S ource: EHR Machine Clipper abhinav: N Practi ce ID: 0001 Dilan lable Time: 03:00:00 PM Luz parr, [facility] 10:18:43 False labor at or after 37 complete d weeks of gestatio n [id number] Completed 201608/07/2021 False labor at or after 37 complete d weeks of gestatio n;Practi ce ID: 0001 Luz parr, [facility] 10:17:27 Gestatio n period, 40 weeks [id number] Completed 201608/07/2021 40 weeks gestatio n of pregnanc y;Practi ce ID: 0001 Luz parr, [facility] 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 10:16:59 Gestatio n period, 9 weeks [id number] Completed 201708/07/2021 9 weeks gestatio n of pregnanc y;Record ed Elsewher e: No Locat ion: Bogdan [facility] S ource: EHR Machine Clipper abhinav: N Practi ce ID: 0001 Dilan lable Time: 02:30:00 PM Luz Hong karolyn [facility] 10:18:55 Gestatio n period, 21 weeks [id number] Completed 201608/07/2021 21 weeks gestatio n of pregnanc y;Record ed Elsewher e: No Locat ion: [facility] S ource: EHR Machine Clipper abhinav: N Practi ce ID: 0001 Dilan lable Time: 08:00:00 AM Lzu [place] karolyn [facility] 10:18:13 Gestatio n period, 34 weeks [id number] Completed 201808/07/2021 34 weeks gestatio n of pregnanc y;Record ed Elsewher e: No [facility]: EHR Machine Clipper abhinav: N Practi ce ID: 0001 Dilan lable Time: 03:00:00 PM Luz Hal parr [facility] 10:17:08 Routine antenata l care Completed 201408/07/2021 SUPERVIS OTH NORMAL PREG;Pra ctice ID: 0001 Luz Hal parr [facility] 10:17:06 Term pregnanc y delivere d [id number] Completed 201508/07/2021 Encounte r for full-ter m uncompli cated delivery ;Practic e ID: 0001 Luz Hal parr [facility] 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 1 10:18:23 Problem Notes None recorded. Procedures Surgical History Date Name Laterality Status Provider Name and Address Organization Details Recorded Time 0 Date of Last Pap Smear completed Valencia Gonzales [facility] 11/16/2021 16:02:44 9 Colposcopy completed Luz Hong [facility] 08/07/2021 10:21:52 Imaging Results None recorded. Procedure Notes None recorded. Medical Equipment None Reported. Allergies Allergen ID Allergen Name Allergen Category Reaction Reaction Severity Criticality Documentation Date Start Date Code Code System Note Provider Name and Address Organization Details Recorded Time 2323 cefaclor medicatio n Not available Not available Not available 06/16/20206 RxNorm Davida Jain [facility] 0 11:05:51 Medications Name Sig Start Date Stop Date Status Note LastModified by Organization Details LastModified Time amoxicill in 500 mg capsule 11/19 completed Not Available Not Available Not Available azithromy rigoberto 250 mg tablet 11/16 completed Not Available Not Available Not Available Synthroid 25 mcg tablet take 1 tablet by oral route every day 03/13 completed Prescrib ed Elsewher e: No Locat ion: [facility] odify By: lorena kohler DateTime : 11/15/19 16 10:21:53 AM Not Available Not Available Not Available Xanax 0.25 mg tablet take 1 tablet by oral route 1 hour before procedur e. 03/07 completed Prescrib ed Elsewher e: No Locat ion: [facility] M odify By: lorena kohler DateTime : 05/18/20 14 08:27:57 AM Not Available Not Available Not Available tobramyci n 0.3 % eye drops 06/16 completed Not Available Not Available Not Available norgestim ate-ethin yl estradiol 0.18 mg/0.215m g/0.25mg- 35 mcg(28)ta blet Take 1 tablet every day by oral route. 11/19 completed Not Available Not Available Not Available Vitamin D2 1,250 mcg (50,000 unit) capsule take 1 capsule by oral route every week 01/16 completed Prescrib ed Elsewher e: No Locat ion: [facility] odify By: [email or web address] Esther shen DateTime : 03/23/20 15 11:07:50 AM Not Available Not Available Not Available norethind fela (contrace ptive) 0.35 mg tablet 11/16 completed Not Available Not Available Not Available drospiren one 3 mg-ethiny l estradiol 0.02 mg tablet TAKE 1 TABLET DAILY. NEED AN APPOINTM ENT FOR ANY FUTURE REFILLS 11/16 completed Not Available Not Available Not Available Chrisen-D uo DHA 29 mg-1 mg-400 mg oral pack take 2 tablets by oral route daily 04/19 completed Prescrib ed Elsewher e: No Locat ion: [facility] odify By: erasmo graves DateTime : 03/21/20 08:58:48 AM Not Available Not Available Not Available DISTANCE LEARNING ADMINISTRATOR-PNV-DH A 28 mg iron-1 mg-200 mg capsule 11/19 completed Not Available Not Available Not Available Vitals Date Recorded Body height Body mass index (BMI) Body weight Systolic blood pressure Diastolic blood pressure Provider Name and Address Organization Details Last Updated DateTime 08/07/2021 160.02 cm 22.3 kg/m2 99070.64 g 117 mm[Hg] 81 mm[Hg] Luz Hong [facility] 1 15:31:12 Date Recorded Body height Body mass index (BMI) Body weight Systolic blood pressure Diastolic blood pressure Provider Name and Address Organization Details Last Updated DateTime 11/16/2021 160.02 cm 22.7 kg/m2 36670.54 g 110 mm[Hg] 64 mm[Hg] Valencia Gonzales [facility] 2 16:02:34 Date Recorded Body weight Systolic blood pressure Diastolic blood pressure Provider Name and Address Organization Details Last Updated DateTime 11/20/2023 33000.18 g 127 mm[Hg] 76 mm[Hg] Valencia Castaneda [facility] 11/20/2023 16:52:00 Date Recorded Body height Body mass index (BMI) Body weight Systolic blood pressure Diastolic blood pressure Provider Name and Address Organization Details Last Updated DateTime 06/16/2020 165.1 cm 23.1 kg/m2 87970.34 g 122 mm[Hg] 74 mm[Hg] Davida Cristobal [facility] 15:58:25 Social History Question Answer Notes LastModified by Organizat ion Details LastModified Time Tobacco Smoking Status Never Smoker Valencia parr, [facility] 11/16/2021 16:02:50 Do You Have An Advance Directive? No Information n ot available 11/16/2021 What Is Your Level Of Alcohol Consumption? Occasional [id number] Information not available 07/12/2020 How Many Years Have You Consumed Alcohol? 11 Information not available 11/16/2021 Are You Blind Or Do You Have Difficulty Seeing? No Information n ot available 11/16/2021 What Is Your Level Of Caffeine Consumption? Moderate Information not available 11/16/2021 How Much Tobacco Do You Chew? None Information not available 11/16/2021 In The 14 Days Before Symptom Onset, Have You Had Close Contact With A Laboratory-confirm ed COVID-19 While That Case Was Ill? No Information n ot available 11/16/2021 In The 14 Days Before Symptom Onset, Have You Had Close Contact With A Person Who Is Under Investigation For COVID-19 While That Person Was Ill? No Information not available 11/16/2021 Have You Been To An Area Known To Be High Risk For COVID-19? No Information not available 11/16/2021 Are You Deaf Or Do You Have Serious Difficulty Hearing? No Information not available 11/16/2021 What Type Of Diet Are You Following? REGULAR Information n ot available 11/16/2021 What Is The Highest Grade Or Level Of School You Have Completed Or The Highest Degree You Have Received? 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 No Information not available 11/16/2021 Do You Use Protection During Sex? No Information not available 11/16/2021 Do You Use Your Seat Belt Or Car Seat Routinely? Yes Information not available 11/16/2021 Do You Have Smoke And Carbon Monoxide Detectors In Your Home? Yes Information not available 11/16/2021 How Much Tobacco Do You Smoke? No Information not available 11/16/2021 Do You Feel Stressed (tense, Restless, Nervous, Or Anxious, Or Unable To Sleep At Night)? [id number] Information not available 11/16/2021 Do You Use Any Illicit Or Recreational Drugs? No Information not available 11/16/2021 Do You Use Sunscreen Routinely? Yes Information not available 11/16/2021 Have You Used IV Drugs? No Information not available 11/16/2021 Sex: Unknown Functional Status Question Answer Note LastModified by Organizat ion Details LastModified Time Do you have difficulty walking or climbing stairs? No Information not available 11/16/2021 Are you able to walk? YESWOREST Information not available 11/16/2021 Are you able to care for yourself? Yes Information not available 11/16/2021 Do you have difficulty dressing or bathing? No Information not available 11/16/2021 What is your exercise level? Moderate [id number] Information not available 07/12/2020 Mental Status None recorded. Family History Relationship Description Onset Age of this Age Resolved Age Notes LastModified by Organization Details LastModified Time Father No current problems or disability [email or web address] Not available 08/07 10:27:45 Mother No current problems or disability [email or web address] Not available 08/07 10:27:45 Medical History Condition Response Other History of abnormal pap Y Gynecological History Statement/Question Response Abnormal Pap Y Flow Moderate Date of LMP 11/20/2023 N On BCP's at Conception? N STIs/STDs N Was last menstrual period normal N HPV Vaccine N Colposcopy 04/14/2019 Duration of Flow (days) 7 Current Control Method None Age at First Child 25 Date of control 03/08/2019 Frequency of Cycle (Q days) 27 Sexually Active? Y None Age of first menstrual cycle 11 Date of Last Pap Smear 10/26/2019 Sexual Problems? N LMP Definite Desired Control Method None N Obstetrics History GPAL:G 4 P 3 0 1 3 Type Value Full Term 3 Spontaneous 1 Living 3 Total 4 Past Encounters Encounter ID Performer Location Encounter Start Date Encounter Closed Date Diagnosis/Indication Diagnosis SNOMED-CT Code Diagnosis ICD10 Code [id number] [facility] [address],[place] [address] 06/16/2020 15:51:37 06/17/2020 15:36:04 Gynecologic examination 55086549 Z01.419 Contracept ion care management 266446518 Z30.9 [id number] [facility] [address],[place] [address] 08/07/2021 15:23:46 08/07/2021 18:18:56 Gynecologic examination 59501988 Z01.419 Z11.51 Contracept ion care management 326268197 Z30.9 [id number] Loraine Diaz [facility] [address],[place] [address] 11/16/2021 15:47:41 11/16/2021 16:32:30 Contraception care management 212229457 Z30.9 [id number] Loraine Diaz [facility] [address],[place] [address] 11/20/2023 16:32:23 11/20/2023 18:05:11 Gynecologic examination 65195561 Z01.419 Z11.51 Health Concerns Section Related Observation LastModified by Organization Detai ls LastModified Time None Recorded Concern Status LastModified by Organization Details LastModified Time None Recorded Advance Directives Directive N: Payers Encounter Date Sequence Insurance Name Policy Number Policy Banuelos Covered Member ID Banuelos Member ID Guarantor Name 06/16/[address] [facility] [id number] [place] [employer] [id number] [place] [employer] 06/16/2020 2 [employer] [id number] [place] [employer] [id number] [employer] 08/07/[address] [facility] [id number] [place] [employer] [id number] [place] [employer] 08/07/2021 2 [employer] [id number] [place] [employer] [id number] [place] [employer] 11/16/[address] [facility] [id number] [place] [employer] [id number] [place] [employer] 11/16/2021 2 [employer]MR [id number] [place] [employer] [id number] [place] [employer] 11/20/[address] [facility] [id number] [place] [employer] [id number] [employer] 11/20/2023 2 UMR [id number] [place] [employer] [id number] [place] [employer] Notes Date Note Type Note Provider Name and Address Organization Details Recorded Time 06/16/2020 text/html Annual GYNReport ed bypatient.Menstrua l cycle:Normal menses Urinary symptoms:No hematuria; No incontinence Vulva:No genital lesion Vagina:Normal vaginal discharge Breast:No breast pain; No breast lump; No nipple discharge Sexual complaints:No sexual complaints; No pain during intercourse; Normal libido Menopausal Symptoms:No menopausal symptoms; Normal vaginal lubrication Psychological symptoms:No depression; No anxiety; No PMDD [facility] 06/16/2020 18:31:57 08/07/2021 text/html Annual GYNReport ed bypatient.Menstrua l cycle:Breakthrough bleeding beginning of the 2nd week of her pill pack. has had a vasectomy. Urinary symptoms:No hematuria; No incontinence Vulva:No genital lesion Vagina:Normal vaginal discharge Breast:No breast pain; No breast lump; No nipple discharge Sexual complaints:No sexual complaints; No pain during intercourse; Normal libido Menopausal Symptoms:No menopausal symptoms; Normal vaginal lubrication Psychological symptoms:No depression; No anxiety; No PMDD Fernanda Gabriel [facility] 08/07/2021 15:52:19 11/16/2021 text/html Here today for m ed check of BCP switch. DEMARIO Mendez-CAMMIE [address], [place], [address], [facility] 11/16/2021 16:27:53 11/20/2023 text/html Annual GYNReport ed bypatient.History: no gynecologic complaints Menstrual cycle:Normal menses Urinary symptoms:No hematuria; No incontinence Vulva:No genital lesion Vagina:Normal vaginal discharge Breast:No breast pain; No breast lump; No nipple discharge Current Contraception:Asmita h control not practiced Sexual complaints:No sexual complaints; No pain during intercourse; Normal libido Menopausal Symptoms:No menopausal symptoms; Normal vaginal lubrication Psychological symptoms:No depression; No anxiety; No PMDD Preventive measures:Encourage self breast examination; Encourage regular exercise; Encourage no tobacco use; Encourage regular mammograms starting age 40; Followed with yearly pap smears Loraine Diaz [facility] [address], [place], [address], [facility] 11/20/2023 18:05:00 OBGyn Episode Ob Episode Information Episode Created Date Number of Fetuses Patient Bloodtype Patient rh Status Prepregnancy Weight lbs Domestic Partner Domestic Partner Phone Father Name Woven Paper Hat Mender Status 06/16/20 20 1 CLOSED Fetus Data First Name Last Name Admitted to NICU Weight (g) Sex Living Outcome Pediatric Complications Fetus ID Race Codes Race Delivery Type Full Term 5199 Vaginal Delivery Chuck Calculation CHUCK Calculation Method Initial Chuck Date Initial Exam Date Initial Exam Provider Initial Ultrasound Date Last Menstrual Period Date Ultra Sound Weeks Gestation Conception by IVF Embryo Age at Transfer Date of Transfer 0 Eighteen To Twenty Week Chuck Update Ultra Sound Date Fundal Height At Umbil Quickening Date Ultra Sound Latest Weeks Gestation Final Chuck Confirmed By Final Chuck Confirmed Date Final Chuck Date Ultra Sound Latest Days Gestation 0 0 Menstrual History Last Menstrual Date Menses Monthly On Bcp Conception Prior Menses Frequency Hcg Plus Date Menarche Onset Age Delivery Information Delivery Date Delivery Type Labor Anesthesia Weeks Gestation Incision Type Labor Labor Length Hrs Delivered By Post Complications Tubal Sterilization Discharge Date Comments 6 40.6 Discharge Information Feeding Method Contraceptive Method Maternal HG B and HCT Levels Ob Episode Information Episode Created Date Number of Fetuses Patient Bloodtype Patient rh Status Prepregnancy Weight lbs Domestic Partner Domestic Partner Phone Father Name Woven Paper Hat Mender Status 06/16/20 20 1 CLOSED Fetus Data First Name Last Name Admitted to NICU Weight (g) Sex Living Outcome Pediatric Complications Fetus ID Race Codes Race Delivery Type Full Term 5198 Vaginal Delivery Chuck Calculation CHUCK Calculation Method Initial Chuck Date Initial Exam Date Initial Exam Provider Initial Ultrasound Date Last Menstrual Period Date Ultra Sound Weeks Gestation Conception by IVF Embryo Age at Transfer Date of Transfer 0 Eighteen To Twenty Week Chuck Update Ultra Sound Date Fundal Height At Umbil Quickening Date Ultra Sound Latest Weeks Gestation Final Hcuck Confirmed By Final Chuck Confirmed Date Final Chuck Date Ultra Sound Latest Days Gestation 0 0 Menstrual History Last Menstrual Date Menses Monthly On Bcp Conception Prior Menses Frequency Hcg Plus Date Menarche Onset Age Delivery Information Delivery Date Delivery Type Labor Anesthesia Weeks Gestation Incision Type Labor Labor Length Hrs Delivered By Post Complications Tubal Sterilization Discharge Date Comments 9 39 Discharge Information Feeding Method Contraceptive Method Maternal HG B and HCT Levels Ob Episode Information Episode Created Date Number of Fetuses Patient Bloodtype Patient rh Status Prepregnancy Weight lbs Domestic Partner Domestic Partner Phone Father Name Woven Paper Hat Mender Status 06/16/20 20 1 CLOSED Fetus Data First Name Last Name Admitted to NICU Weight (g) Sex Living Outcome Pediatric Complications Fetus ID Race Codes Race Delivery Type Full Term 5200 Vaginal Delivery Chuck Calculation CHUCK Calculation Method Initial Chuck Date Initial Exam Date Initial Exam Provider Initial Ultrasound Date Last Menstrual Period Date Ultra Sound Weeks Gestation Conception by IVF Embryo Age at Transfer Date of Transfer 0 Eighteen To Twenty Week Chuck Update Ultra Sound Date Fundal Height At Umbil Quickening Date Ultra Sound Latest Weeks Gestation Final Chuck Confirmed By Final Chuck Confirmed Date Final Chuck Date Ultra Sound Latest Days Gestation 0 0 Menstrual History Last Menstrual Date Menses Monthly On Bcp Conception Prior Menses Frequency Hcg Plus Date Menarche Onset Age Delivery Information Delivery Date Delivery Type Labor Anesthesia Weeks Gestation Incision Type Labor Labor Length Hrs Delivered By Post Complications Tubal Sterilization Discharge Date Comments 7 + GBS Discharge Information Feeding Method Contraceptive Method Maternal HG B and HCT Levels
--- OUTSIDE RECORDS SUMMARY | 2024-09-07 15:10 | XMS_ITS | Encounter Summary ---
Author Organization [facility] Address [address] [place] [address] Care Team Providers Care Damage Prevention Coordinator Name Role Phone Kolton Chavarria MD Primary Care Provider [phone] Reason for Visit * Reason Onset Date Comments Covid-19 Home Monitoring 01/24/2022 Daily c alls Encounter Details Date Type Department Care Team (Late st Contact Info) Description 01/24/2022 Telephone [facility] Accountable Care Organization [address] [place] [address] Lima Coyle MA [address] [place] [address] DR MYR[address] [place] [phone] Covid-19 Home Monitoring (Daily calls ) Social History Tobacco Use Types Packs/Day Years Used Date Smoking Tobacco: Never Smokeless Tobacco: Never Comments Unknown Sex and Gender Information Value Date Recorded Sex Assigned at Not on file 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 COVID-19 Symptom questionnaire was completed today. Symptoms were addressed to be Mild. Escalation was not needed. Next Program Call Due: 01/25 COVID-19 Home Monitoring Flowsheet Answers: Temp/Pulse Ox Symptom Monitoring Are you feeling short of breath today?: Yes Shortness of Breath Details:: Same Are you having a cough today?: Yes Cough Details:: Same Are you experiencing weakness today?: No How is your appetite compared to yesterday?: Better Are you vomiting?: No Are you experiencing diarrhea? : No documented in this encounter Plan of Treatment Not on file documented as of this encounter Visit Diagnoses Not on filedocumented in this encounter Additional Health Concerns Infection Onset Date Last Indicated Resolved Time COVID19 01/20/2022 01/20/2022 01/30/2022 3:07 AM CDT documented as of this encounter Care Teams Damage Prevention Coordinator Relationship Specialty Start Date End Date Kolton Chavarria MD PCP - General Family Medicine 01/20/22 documented as of this encounter
--- OUTSIDE RECORDS SUMMARY | 2024-09-07 15:10 | XMS_ITS | Encounter Summary ---
Author Organization [facility] Address [address] [place] [address] Care Team Providers Care Priming Mixture Carrier Name Role Phone Kolton Chavarria MD Primary Care Provider [phone] Reason for Visit * Reason Onset Date Comments Covid-19 Home Monitoring 01/28/2022 Encounter Details Date Type Department Care Team (Late st Contact Info) Description 01/28/2022 Telephone [facility] Accountable Care Organization [address] [place] [id number] Trina Anand LCSW [address] [place] [address] DR MYRICK [address] [place] [phone] Covid-19 Home Monitoring Social History Tobacco Use Types Packs/Day Years Used Date Smoking Tobacco: Never Smokeless Tobacco: Never Comments Unknown Sex and Gender Information Value Date Recorded Sex Assigned at Not on file 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 COVID-19 Symptom questionnaire was not completed today, because the patient could not be reached. [facility] day 2 Next Program Call Due: 01.29.2022 documented in this encounter Plan of Treatment Not on file documented as of this encounter Visit Diagnoses Not on filedocumented in this encounter Additional Health Concerns Infection Onset Date Last Indicated Resolved Time COVID19 01/20/2022 01/20/2022 01/30/2022 3:07 AM CDT documented as of this encounter Care Teams Priming Mixture Carrier Relationship Specialty Start Date End Date Kolton Chavarria MD PCP - General Family Medicine 01/20/22 documented as of this encounter
--- OUTSIDE RECORDS SUMMARY | 2024-09-07 15:10 | XMS_ITS | Clinical Summary ---
Author Organization [facility] Address [address] [place] [address] Care Team Providers Care Tire And Tube Repairer Name Role Phone Unavailable Primary Care Provider Unavailabl e Source Comments [facility],non-owned Affiliates and Associated Physician Practices is amultiple site organization consisting of ambulatory clinics and hospital sitesin [place], [place], [place] and [place]. This disclosure is being madepursuant to the Care Everywhere program and may not contain all information available regarding this patient. Last updated 18.[facility] Immunizations Name Administration Dates Next Due TDAP (7yrs+) 12/05/2018 Social History Tobacco Use Types Packs/Day Years Used Date Smoking Tobacco: Never Assessed Sex and Gender Information Value Date Recorded Sex Assigned at Not on file Gender Identity Not on file Sexual Orientation Not on file Plan of Treatment Health Maintenance Due Date Last Done Comments PAP SMEAR 1989 HIV SCREENING 01/10/2004 HEPATITIS C SCREENING 01/05/2007 HEPATITIS B VACCINE (1 of 3 - 19+ 3-dose series) 01/10/2008 DEPRESSION SCREENING 09/09/2023 COVID-19 VACCINE ( - 2023-2 5 season) 2024 INFLUENZA VACCINE (#1) 2024 DTAP/TDAP/TD VACCINES (2 - T d or Tdap) 12/05/2028 12/05/2018 ZOSTER VACCINE (1 of 2) 2039 HIB VACCINE Aged Out No longer eligi ble based on patient's age to complete this topic HPV VACCINE Aged Out No longer eligi ble based on patient's age to complete this topic MENINGOCOCCAL VACCINE Aged Out No ivonne robert eligible based on patient's age to complete this topic PNEUMOCOCCAL VACCINE Aged Out No long er eligible based on patient's age to complete this topic
--- OUTSIDE RECORDS SUMMARY | 2024-09-07 15:10 | XMS_ITS | Clinical Summary ---
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 Gender Identity Not on file Sexual Orientation Not on file Obstetrics History Last Filed Vital Signs Vital Sign Reading [...] 01/20/2022 2:04 PM CDT Plan of Treatment Health Maintenance Due Date Last Done Comments Cervical Cancer Screening 1989 Depression Screening 1989 Hepatitis C Screening 1989 Varicella Vaccines (1 of 2 - 13+ 2-dose series) 2002 Hepatitis B Screening 2007 Regular Well Visit/Exam 18-64 2007 Covid-19 Vaccine (2023- season) 2024 07/20/2021, 10/30/2020, 10/07/2020 Influenza Vaccine (#1) 2024 , 06/18/2020, 06/15/2019, Additional history exists DTaP/Tdap/Td Vaccine (2 - Td or Tdap) 12/05/2028 12/05/2018 HPV Vaccines Aged Out No longer eligi ble based on patient's age to complete this topic Pneumococcal vaccine <65 Aged Out No longer eligible based on patient's age to complete this [place] [address] [facility] CHOICE PLUS Member Subscriber Plan / Payer (Ef fective 2021-Present) Name:Spring Soriano Relation to Subscriber:Self Name:Spring Soriano Payer ID:[id number] (NAIC) Type:[facility] HMO/PPO Address: [address] Care Teams Supervisor Cigar Processing Relationship Specialty Start Date End Date Kolton Chavarria MD PCP - General Family Medicine 01/20/22
--- OUTSIDE RECORDS SUMMARY | 2024-09-07 15:11 | XMS_ITS | Encounter Summary ---
Author Organization [facility] Address [address] [place] [address] Care Team Providers Care Veterinary Laboratory Technician Name Role Phone Kolton Chavarria MD Primary Care Provider [phone] Reason for Visit * Reason Onset Date Comments Covid-19 Home Monitoring 01/23/2022 Daily c all Encounter Details Date Type Department Care Team (Late st Contact Info) Description 01/23/2022 Telephone [facility] Accountable Care Organization [address] [place] [id number] Trixie Ramos LPN [address] [place] [address] [facility] [address] [place] [address] Covid-19 Home Monitoring (Daily call ) Social History Tobacco Use Types Packs/Day Years Used Date Smoking Tobacco: Never Smokeless Tobacco: Never Comments Unknown Sex and Gender Information Value Date Recorded Sex Assigned at Not on file Legal Sex Female 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 Next Program Call Due: 01/24 documented in this encounter Plan of Treatment Not on file documented as of this encounter Visit Diagnoses Not on filedocumented in this encounter Additional Health Concerns Infection Onset Date Last Indicated Resolved Time COVID19 01/20/2022 01/20/2022 01/30/2022 3:07 AM CDT documented as of this encounter Care Teams Veterinary Laboratory Technician Relationship Specialty Start Date End Date Kolton Chavarria MD PCP - General Family Medicine 01/20/22 documented as of this encounter
--- OUTSIDE RECORDS SUMMARY | 2024-09-07 15:11 | XMS_ITS | Encounter Summary ---
Author Organization [facility] Address [address] [place] [address] Care Team Providers Care American Studies Professor Name Role Phone Kolton Chavarria MD Primary Care Provider [phone] Reason for Visit * Reason Onset Date Comments Covid-19 Home Monitoring 01/21/2022 Encounter Details Date Type Department Care Team (Late st Contact Info) Description 01/21/2022 Telephone [facility] Accountable Care Organization [address] [place] [id number] Loulou Powers CMA [address] [place] [id number] Covid-19 Home Monitoring Social History Tobacco Use Types Packs/Day Years Used Date Smoking Tobacco: Never Smokeless Tobacco: Never Comments Unknown Sex and Gender Information Value Date Recorded Sex Assigned at Not on file 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 Unable to reach patient. Patient will receive follow up call tomorrow. * Telephone Encounter - Loulou Powers CMA - 01/21/2022 9:14 AM CDT COVID Home Monitoring Unable to Reach Called patient for home monitoring MA assessment. Unable to reach patient. Patient will receive follow up call today. documented in this encounter Plan of Treatment Not on file documented as of this encounter Visit Diagnoses Not on filedocumented in this encounter Additional Health Concerns Infection Onset Date Last Indicated Resolved Time COVID19 01/20/2022 01/20/2022 01/30/2022 3:07 AM CDT documented as of this encounter Care Teams American Studies Professor Relationship Specialty Start Date End Date Kolton Chavarria MD PCP - General Family Medicine 01/20/22 documented as of this encounter
--- OUTSIDE RECORDS SUMMARY | 2024-09-07 15:11 | XMS_ITS | Encounter Summary ---
Author Organization [facility] Address [address] [place] [address] Care Team Providers Care Trade Economist Name Role Phone Kolton Chavarria MD Primary Care Provider [phone] Reason for Visit * Reason Onset Date Comments Covid-19 Home Monitoring 01/22/2022 Encounter Details Date Type Department Care Team (Late st Contact Info) Description 01/22/2022 Telephone [facility] Accountable Care Organization [address] [place] [id number] Loulou Powers CMA [address] [place] [id number] Covid-19 Home Monitoring Social History Tobacco Use Types Packs/Day Years Used Date Smoking Tobacco: Never Smokeless Tobacco: Never Comments Unknown Sex and Gender Information Value Date Recorded Sex Assigned at Not on file 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 : No This patient has enrolled in the PHONE ONLY version of COVID-19 Home Monitoring Program. COVID-19 Symptom questionnaire was completed today. Symptoms were addressed to be Mild. Escalation was not needed. Next Program Call Due: 01/23/22 * Telephone Encounter - Loulou Powers CMA - 01/22/2022 9:18 AM CDT COVID Home Monitoring Unable to [...] documented as of this encounter Care Teams Trade Economist Relationship Specialty Start Date End Date Kolton Chavarria MD PCP - General Family Medicine 01/20/22 documented as of this encounter
--- OUTSIDE RECORDS SUMMARY | 2024-09-07 15:11 | XMS_ITS | Encounter Summary ---
Author Organization [facility] Address [address] [id number] Care Team Providers Care Repairer Hairspring Name Role Phone Kolton Chavarria MD Primary Care Provider [phone] Reason for Visit * Reason Comments Fever Started last night, fever, body aches, headaches Encounter Details Date Type Department Care Team (Late Contact Info) Description 01/20/2022 2:00 PM CDT Office Visit [facility] [address] [address] Dora Emery NP [address] [place] [address] [address] [place], [place] [id number] COVID-19 (Primary Dx) Social History Tobacco Use Types Packs/Day Years Used Date Smoking Tobacco: Never Smokeless Tobacco: Never Comments Unknown Sex and Gender Information Value Date Recorded Sex Assigned at Not on file 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[employer] Gender Identity Not on file Sexual Orientation Not on file documented as of this encounter Last Filed Vital Signs Vital Sign Reading [...] Mass Index 22.66 01/20/2022 2:04 PM CDT documented in this encounter Patient Instructions * Patient Instructions* Dora Emery NP - 01/20/2022 2:00 PM CDT Results for orders placed or performed in visit on 01/20/22 POC Influenza A/B, COVID-19 antigen Result Value Ref Range Inflenza A Ag, POC Negative Influenza B Ag, POC Negative COVID-19 Ag POC Positive (A) Presumptive Negative, Invalid CDC Information: While waiting for your COVID-19 test result or if your COVID-19 test is positive: ISOLATE: Stay home except to get medical care! Separate yourself from other people and pets in yourhome: ??? Do not go to work, school, or public areas, such as stores or social gatherings. ??? Do not use public transportation. ??? If available, stay in a separate bedroom and use a separate bathroom. ??? Ask others to care for your pets. (If possible) ??? Wear a facemask when around other people or pets. ??? Cover your mouth and nose with a tissue when you cough or sneeze. If a tissue is not available,cough or sneeze into your upper sleeve (not your hands). ??? Throw tissues away in trash-can that has a bag in it. Empty your trash daily. ??? Always wash your hands after you throw away the tissue or garbage. If you test Positive for COVID-19 Given what we currently know about COVID-19 and the Omicron variant, CDC is shortening the recommended time for isolation from 10 days for people with COVID-19 to 5 days, if asymptomatic, followed by5 days of wearing a mask when around others. The change is motivated by science demonstrating that the majority of SARS-CoV-2 transmission occurs early in the course of illness, generally in the 1-2 days prior to onset of symptoms and the 2-3 days after. Therefore, people who test positive should isolate for 5 days and, if asymptomatic at that time, they may leave isolation if they can continue to mask for 5 days to minimize the risk of infecting others. Quarantine for those exposed to COVID-19 Additionally, CDC is updating the recommended quarantine period for those exposed to COVID-19. For people who are unvaccinated or are more than six months out from their second mRNA dose (or more than 2 months after the J&J vaccine) and not yet boosted, CDC now recommends quarantine for 5 days followed by strict mask use for an additional 5 days. Alternatively, if a 5-day quarantine is not feasible, it is imperative that an exposed person wear a well-fitting mask at all times when around others for 10 days after exposure. Individuals who have received their booster shot do not need to quarantine following an exposure, but should wear a mask for 10 days after the exposure. For all those exposed, best practice would also include a test for SARS-CoV-2 at day 5 after exposure. If symptomsoccur, individuals should immediately quarantine until a negative test confirms symptoms are not attributable to COVID-19. Isolation relates to behavior after a confirmed infection. Isolation for 5 days followed by wearinga well-fitting mask will minimize the risk of spreading the virus to others. Quarantine refers to the time following exposure to the virus or close contact with someone known to have COVID-19. Both updates come as the Omicron variant continues to spread throughout the [place] and reflects the current science on when and for how long a person is maximally infectious. If You Were Exposed to Someone with COVID-19 (Quarantine) If you: Have been boosted OR Completed the primary series of Pfizer or Moderna vaccine within the last 6 months OR Completed the primary series of J&J vaccine within the last 2 months Wear a mask around others for 10 days. Test on day 5, if possible. If you develop symptoms get a test and stay home. If you: Completed the primary series of Pfizer or Moderna vaccine over 6 months ago and are not boosted OR Completed the primary series of J&J over 2 months ago and are not boosted OR Are unvaccinated Stay home for 5 days. After that continue to wear a mask around others for 5 additional days. If you can???t quarantine you must wear a mask for 10 days. Test on day 5 if possible. If you develop symptoms get a test and stay home If You Test Positive for COVID-19 (Isolate) Everyone, regardless of vaccination status. Stay home for 5 days. If you have no symptoms or your symptoms are resolving after 5 days, you can leave your house. Continue to wear a mask around others for 5 additional days. If you have a fever, continue to stay home until your fever resolves. Self-care: ??? Rest as much as possible. Slowly start to do more each day. ??? Take the medicines recommended by your doctor for fever, body aches, cough, or headaches. (Tylenol or Ibuprofen for aches/pains/fever as needed) (Antihistamines like Claritin or Benadryl as needed for drainage) (Delsym and cough drops/throat lozenges as needed for cough) ??? Drink more liquids as directed to help thin and loosen mucus so it is easier to cough up. Liquids such as water, fruit juice, and broth also help keep you hydrated. ??? Soothe a sore throat by gargling with warm salt water. Make salt water by dissolving ?? teaspoon salt in 1 cup warm water (8 ounces). Older children and adults can also use throat lozenges, ice chips, or sore throat spray. ??? Use a humidifier or vaporizer to increase air moisture in your home. This may make it easier tobreathe and help decrease coughing. ??? Use saline nasal drops as directed to relieve congestion. ??? Apply petroleum-based jelly around the outside of nostrils to decrease irritation from blowing your nose. ??? DO NOT smoke or vape. Nicotine and other chemicals in cigarettes and cigars can make your symptoms worse. Monitor your symptoms: ??? Seek medical attention right away if your symptoms get worse, such as if you are having difficulty breathing, shortness of breath, new confusion or inability to arouse, or bluish lips or face. ??? If you have a pulse ox monitor at home, monitor your oxygen saturations with this device. If you find your Oxygen Saturation is falling 92% or below please notify your PCP right away or seek medical attention. Or if you experience fever uncontrolled with antipyretics, shortness of breath, chestdiscomfort, uncontrolled n/v/d ??? If you have a medical emergency, call 911 and notify the EMS personnel that you have or are being evaluated for COVID-19. Put on a facemask before emergency medical services arrive -briefly discussed monoclonal antibody therapy, and antiviral therapy, call your PCP for more information and to see if you meet criteria for treatment. documented in this encounter Progress Notes * Dora Emery NP - 01/20/2022 2:00 PM CDT Images from the original note were not included. Subjective/Objective Patient ID: Spring Soriano is a 32 y.o. female. Chief Complaint Fever (Started last night, fever, body aches, headaches) Fever This is a new problem. Episode onset: last night. The problem has been unchanged. The maximum temperature noted was 100 to 100.9 F. Associated symptoms include headaches. Pertinent negatives include no abdominal pain, chest pain, congestion, coughing, diarrhea, ear pain, nausea, rash, sore throat, vomiting or wheezing. She has tried NSAIDs for the symptoms. The treatment provided moderate relief. Risk factors: recent travel (10 days ago to [place]) Risk factors: no recent sickness and no sick contacts Review of Systems Constitutional: Positive for fatigue and fever. Negative for appetite change, chills and diaphoresis. HENT: Negative for congestion, ear discharge, ear pain, postnasal drip, rhinorrhea, sinus pressure,sinus pain, sneezing and sore throat. Respiratory: Negative for cough, chest tightness, shortness of breath and wheezing. Cardiovascular: Negative for chest pain. Gastrointestinal: Negative for abdominal pain, diarrhea, nausea and vomiting. Musculoskeletal: Positive for myalgias. Negative for neck pain and neck stiffness. Skin: Negative for rash. Neurological: Positive for headaches. Negative for dizziness. Hematological: Negative for adenopathy. Physical Exam Vitals and nursing note reviewed. Constitutional: General: She is awake. She is not in acute distress. Appearance: Normal appearance. HENT: Head: Normocephalic and atraumatic. Right Ear: Tympanic membrane and ear canal normal. Left Ear: Tympanic membrane and ear canal normal. Nose: No congestion or rhinorrhea. Right Sinus: No maxillary sinus tenderness or frontal sinus tenderness. Left Sinus: No maxillary sinus tenderness or frontal sinus tenderness. Mouth/Throat: Lips: [place]. Mouth: Mucous membranes are moist. Tongue: Tongue does not deviate from midline. Pharynx: Uvula midline. No pharyngeal swelling, oropharyngeal exudate, posterior oropharyngeal erythema or uvula swelling. Tonsils: No tonsillar exudate or tonsillar abscesses. Eyes: General: Lids are normal. Pupils: Pupils are equal, round, and reactive to light. Cardiovascular: Rate and Rhythm: Normal rate and regular rhythm. Pulses: Normal pulses. Heart sounds: Normal heart sounds. Pulmonary: Effort: Pulmonary effort is normal. No respiratory distress. Breath sounds: Normal breath sounds. No decreased breath sounds, wheezing, rhonchi or rales. Musculoskeletal: Cervical back: Full passive range of motion without pain, normal range of motion and neck supple. Lymphadenopathy: Cervical: No cervical adenopathy. Skin: General: Skin is warm and dry. Neurological: Mental Status: She is alert and oriented to person, place, and time. Gait: Gait normal. Psychiatric: Behavior: Behavior is cooperative. Vitals: 01/20/22 1404 BP: 115/77 BP Location: Left arm Patient Position: Sitting Pulse: 79 Resp: 18 Temp: 37.1 ??C (98.8 ??F) TempSrc: Oral SpO2: 100% Weight: 59.9 kg (132 lb) Height: 162.6 cm (5' 4 ) No exam data present No past medical history on file. No current outpatient medications on file. Allergies Allergen Reactions ??? Cefaclor Nausea only Social History Socioeconomic History ??? Marital status: Unknown Tobacco Use ??? Smoking status: Never Smoker ??? Smokeless tobacco: Never Used No past surgical history on file. Assessment/Plan Diagnoses and all orders for this visit: COVID-19 (Primary) - POC Influenza A/B, COVID-19 antigen - [facility] COVID-19 home monitoring program; Future -thera-flu am and pm per package directions as needed Recent Results (from the past 4 hour(s)) POC Influenza A/B, COVID-19 antigen Collection Time: 01/20/22 2:24 PM Result Value Ref Range Inflenza A Ag, POC Negative Influenza B Ag, POC Negative COVID-19 Ag POC Positive (A) Presumptive Negative, Invalid Patient Education: [facility] Information: While waiting for your COVID-19 test result or if your COVID-19 test is positive: ISOLATE: Stay home except to get medical care! Separate yourself from other people and pets in yourhome: ??? Do not go to work, school, or public areas, such as stores or social gatherings. ??? Do not use public transportation. ??? If available, stay in a separate bedroom and use a separate bathroom. ??? Ask others to care for your pets. (If possible) ??? Wear a facemask when around other people or pets. ??? Cover your mouth and nose with a tissue when you cough or sneeze. If a tissue is not available,cough or sneeze into your upper sleeve (not your hands). ??? Throw tissues away in trash-can that has a bag in it. Empty your trash daily. ??? Always wash your hands after you throw away the tissue or garbage. If you test Positive for COVID-19 Given what we currently know about COVID-19 and the Omicron variant, CDC is shortening the recommended time for isolation from 10 days for people with COVID-19 to 5 days, if asymptomatic, followed by5 days of wearing a mask when around others. The change is motivated by science demonstrating that the majority of SARS-CoV-2 transmission occurs early in the course of illness, generally in the 1-2 days prior to onset of symptoms and the 2-3 days after. Therefore, people who test positive should isolate for 5 days and, if asymptomatic at that time, they may leave isolation if they can continue to mask for 5 days to minimize the risk of infecting others. Quarantine for those exposed to COVID-19 Additionally, CDC is updating the recommended quarantine period for those exposed to COVID-19. For people who are unvaccinated or are more than six months out from their second mRNA dose (or more than 2 months after the J&J vaccine) and not yet boosted, CDC now recommends quarantine for 5 days followed by strict mask use for an additional 5 days. Alternatively, if a 5-day quarantine is not feasible, it is imperative that an exposed person wear a well-fitting mask at all times when around others for 10 days after exposure. Individuals who have received their booster shot do not need to quarantine following an exposure, but should wear a mask for 10 days after the exposure. For all those exposed, best practice would also include a test for SARS-CoV-2 at day 5 after exposure. If symptomsoccur, individuals should immediately quarantine until a negative test confirms symptoms are not attributable to COVID-19. Isolation relates to behavior after a confirmed infection. Isolation for 5 days followed by wearinga well-fitting mask will minimize the risk of spreading the virus to others. Quarantine refers to the time following exposure to the virus or close contact with someone known to have COVID-19. Both updates come as the Omicron variant continues to spread throughout the [place] and reflects the current science on when and for how long a person is maximally infectious. If You Were Exposed to Someone with COVID-19 (Quarantine) If you: Have been boosted OR Completed the primary series of Pfizer or Moderna vaccine within the last 6 months OR Completed the primary series of J&J vaccine within the last 2 months Wear a mask around others for 10 days. Test on day 5, if possible. If you develop symptoms get a test and stay home. If you: Completed the primary series of Pfizer or Moderna vaccine over 6 months ago and are not boosted OR Completed the primary series of J&J over 2 months ago and are not boosted OR Are unvaccinated Stay home for 5 days. After that continue to wear a mask around others for 5 additional days. If you can???t quarantine you must wear a mask for 10 days. Test on day 5 if possible. If you develop symptoms get a test and stay home If You Test Positive for COVID-19 (Isolate) Everyone, regardless of vaccination status. Stay home for 5 days. If you have no symptoms or your symptoms are resolving after 5 days, you can leave your house. Continue to wear a mask around others for 5 additional days. If you have a fever, continue to stay home until your fever resolves. Self-care: ??? Rest as much as possible. Slowly start to do more each day. ??? Take the medicines recommended by your doctor for fever, body aches, cough, or headaches. (Tylenol or Ibuprofen for aches/pains/fever as needed) (Antihistamines like Claritin or Benadryl as needed for drainage) (Delsym and cough drops/throat lozenges as needed for cough) ??? Drink more liquids as directed to help thin and loosen mucus so it is easier to cough up. Liquids such as water, fruit juice, and broth also help keep you hydrated. ??? Soothe a sore throat by gargling with warm salt water. Make salt water by dissolving ?? teaspoon salt in 1 cup warm water (8 ounces). Older children and adults can also use throat lozenges, ice chips, or sore throat spray. ??? Use a humidifier or vaporizer to increase air moisture in your home. This may make it easier tobreathe and help decrease coughing. ??? Use saline nasal drops as directed to relieve congestion. ??? Apply petroleum-based jelly around the outside of nostrils to decrease irritation from blowing your nose. ??? DO NOT smoke or vape. Nicotine and other chemicals in cigarettes and cigars can make your symptoms worse. Monitor your symptoms: ??? Seek medical attention right away if your symptoms get worse, such as if you are having difficulty breathing, shortness of breath, new confusion or inability to arouse, or bluish lips or face. ??? If you have a pulse ox monitor at home, monitor your oxygen saturations with this device. If you find your Oxygen Saturation is falling 92% or below please notify your PCP right away or seek medical attention. Or if you experience fever uncontrolled with antipyretics, shortness of breath, chestdiscomfort, uncontrolled n/v/d ??? If you have a medical emergency, call 911 and notify the EMS personnel that you have or are being evaluated for COVID-19. Put on a facemask before emergency medical services arrive -briefly discussed monoclonal antibody therapy, and antiviral therapy, call your PCP for more information and to see if you meet criteria for treatment. Disposition ??? Treatment plan including expectations, follow up, and return precautions discussed with patient/parent, verbalizes understanding. ??? Medication dosage, use, and potential adverse reactions discussed with patient/parent. ??? Advised to follow up with PCP if symptoms do not resolve as expected or sooner if condition worsens. ??? Signs/symptoms warranting ER evaluation reviewed. ??? Patient and/or guardian was given an opportunity to ask questions, questions answered. Dora Emery NP Cosigned by Jonathan Monaco MD at 01/20/2022 8:56 PM CDT documented in this encounter Plan of Treatment Not on file documented as of this encounter Procedures Procedure Name Priority Date/Time Associated Diagnosis Comments POC INFLUENZA A/B, COVID-19 ANTIGEN Routine 01/20/2022 2:24 PM CDT COVID-19 documented in this encounter Results * (ABNORMAL) POC Influenza A/B, COVID-19 antigen (01/20/2022 2:24 PM CDT) Influenza A Ag, POC Negative [facility] Influenza B Ag, POC Negative [facility] COVID-19 Ag POC Positive(A) Presumptive Negative, Invalid [facility] Nasal 01/20/2022 2:24 PM CDT us Dora Emery NP POINT OF CARE TEST ORDERABLES F inal Result Performing Organization Address City/State/[facility] Co de Phone Number [facility] [address] [place] [address] documented in this encounter Visit Diagnoses Diagnosis COVID-19- Primary documented in this encounter Additional Health Concerns Infection Onset Date Last Indicated Resolved Time COVID: Suspected 01/20/2022 01/20/2022 01/20/2022 2:25 PM CDT COVID19 01/20/2022 01/20/2022 01/30/2022 3:07 AM CDT documented as of this encounter Care Teams Repairer Hairspring Relationship Specialty Start Date End Date Kolton Chavarria MD PCP - General Family Medicine 01/20/22 documented as of this encounter
--- OUTSIDE RECORDS SUMMARY | 2024-09-07 15:11 | XMS_ITS | Encounter Summary ---
Author Organization [facility] Address [address] [place] [address] Care Team Providers Care Dining Room Manager Name Role Phone Unavailable Primary Care Provider Unavailabl e Encounter Details Date Type Department Care Team (Late st Contact Info) Description 10/29/2023 External Device Data [facility] ABSTRACTION Provider, Abstract NO ADDRESS ON FILE Social History Tobacco Use Types Packs/Day Years Used Date Smoking Tobacco: Never Assessed Sex and Gender Information Value Date Recorded Sex Assigned at Not on file Gender Identity Not on file Sexual Orientation Not on file documented as of this encounter Plan of Treatment Not on file documented as of this encounter Visit Diagnoses Not on filedocumented in this encounter
--- OUTSIDE RECORDS SUMMARY | 2024-09-07 15:11 | XMS_ITS | Encounter Summary ---
Author Organization [facility] Address [address] [place] [address] Care Team Providers Care Marinator Name Role Phone Unavailable Primary Care Provider Unavailabl e Encounter Details Date Type Department Care Team (Late st Contact Info) Description 09/17/2023 External Device Data [facility] ABSTRACTION Provider, Abstract [...]
--- OUTSIDE RECORDS SUMMARY | 2024-09-07 15:11 | XMS_ITS | Clinical Summary ---
Author Organization [facility] Address [address] [place]: Epic Prelude ADT [place] [address] Care Team Providers Care Levers Lace Machine Operator Name Role Phone Unavailable Primary Care Provider Unavailabl e Medications Medication Sig Dispensed Refills Start Date End Date Status lidocaine (XYLOCAINE) 2 % Solution SWISH AND SPIT OR SWALLOW 10 ML BY MOUTH 3 TIMES DAILY NEEDED FOR THROAT PAIN. 300 mL 06/05/2024 Active nitrofurantoin (MACROBID) 100 mg capsule Take 1 capsule by mouth every 12 hours for 7 days; must administer with a meal/food 14 Capsule 07/14/2024 Active Social History Tobacco Use Types Packs/Day Years Used Date Smoking Tobacco: Never Assessed Sex and Gender Information Value Date Recorded Sex Assigned at Not on file Gender Identity Not on file Sexual Orientation Not on file Plan of Treatment Health Maintenance Due Date Last Done Comments DTAP/TDAP/TD VACCINES (1 - Tdap) 01/10/2008 HEPATITIS B VACCINES (1 of 3 - 19+ 3-dose series) 01/10/2008 CERVICAL CANCER SCREENING 2019 INFLUENZA VACCINE (#1) 2024 HPV VACCINES Aged Out No longer eligi ble based on patient's age to complete this topic PNEUMOCOCCAL VACCINE 0-64 YEARS Aged Out No longer eligible based on patient's age to complete this topic
== END 2024-08-31 08:12 | disposition home or self-care (01) ==
LOC: ANHGOSHLAB 08:14
PROVIDERS: PCP Family Medicine; Visit Provider Nurse Practitioner Family
DX: E03.8 Other specified hypothyroidism (principal); Z00.00 Encounter for general adult medical examination without abnormal findings; Z86.2 Personal history of diseases of the blood and blood-forming organs and certain disorders involving the immune mechanism
CPT/HCPCS: 36415; 80053; 80061; 82306; 82728; 83540; 83550; 84439; 84443; 84480; 85025

== ENCOUNTER 2025-07-06 08:34 | Outpatient (CLI) | payer OTHER, SELFPAY ==
--- OUTSIDE RECORDS SUMMARY | 2025-07-06 08:49 | XMS_ITS | Clinical Summary ---
Author Organization [facility] 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 Gender Identity Not on file Sexual Orientation Not on file Obstetrics History Last Filed Vital Signs Vital Sign Reading Time Taken Comments Blood Pressure 115/77 01/20/2022 2:04 PM CDT Pulse 79 01/20/2022 2:04 PM CDT Temperature 37.1 C (98.8 F) 01/20/2022 2:04 PM CDT Respiratory Rate 18 01/20/2022 2:04 PM CDT Oxygen Saturation 100% 01/20/2022 2:04 PM CDT Inhaled Oxygen Concentration - - Weight 59.9 kg (132 lb) 01/20/2022 2:04 PM CDT Height 162.6 cm (5' 4) 01/20/2022 2:04 PM CDT Body Mass Index 22.66 01/20/2022 2:04 PM CDT Plan of Treatment Health Maintenance Due Date Last Done Comments Cervical Cancer Screening 1989 Depression Screening 1989 Hepatitis C Screening 1989 Varicella Vaccines (1 of 2 - 13+ 2-dose series) 2002 Hepatitis B Screening 2007 Regular Well Visit/Exam 18-64 2007 HPV Vaccines (1 - 3-dose SCDM series) 01/10/2016 Covid-19 Vaccine ( season) 2025 07/20/2021, 10/30/2020, 10/07/2020 Influenza Vaccine (#1) 2025 , 06/18/2020, 06/15/2019, Additional history exists DTaP/Tdap/Td Vaccine (2 - Td or Tdap) 12/05/2028 12/05/2018 Pneumococcal vaccine <65 Aged Out No longer eligible based on patient's age to complete this topic Insurance [employer] Member Subscriber Plan / Payer (Ef fective 2021-Present) Name:Spring Santizo Relation to Subscriber:Self Name:Spring Santizo Payer ID:[id number] (NAIC) Type:[employer] HMO/PPO Address: [address] Care Teams Information Technology Project Manager Relationship Specialty Start Date End Date Kolton Chavarria MD PCP - General Family Medicine 01/20/22
--- OUTSIDE RECORDS SUMMARY | 2025-07-06 08:49 | XMS_ITS | Clinical Summary ---
Author Organization [facility] Address [address] [place] [address] Care Team Providers Care Flight Simulator Teacher Name Role Phone Unavailable Primary Care Provider Unavailabl e Source Comments [facility],non-owned Affiliates and Associated Physician Practices is amultiple site organization consisting of ambulatory clinics and hospital sitesin [place], [place], [place] and [place]. This disclosure is being madepursuant to the Care Everywhere program and may not contain all information available regarding this patient. Last updated 18.[facility] [employer] Immunizations Immunization Administration Dates Next Due TDAP (7yrs+) 12/05/2018 Social History Tobacco Use Types Packs/Day Years Used Date Smoking Tobacco: Never Assessed Comments Unknown Sex and Gender Information Value Date Recorded Sex Assigned at Not on file Legal Sex Female 10:26 AM CDT Gender Identity Not on file Sexual Orientation Not on file Plan of Treatment Health Maintenance Due Date Last Done Comments HIV SCREENING 01/10/2004 HEPATITIS C SCREENING 01/05/2007 HEPATITIS B VACCINE (1 of 3 - 19+ 3-dose series) 01/10/2008 HPV VACCINE (1 - 3-dose SCDM series) 01/10/2016 DEPRESSION SCREENING 09/09/2024 COVID-19 VACCINE ( - 2023-2 5 season) 2025 INFLUENZA VACCINE (#1) 2025 DTAP/TDAP/TD VACCINES (2 - T d or Tdap) 12/05/2028 12/05/2018 ZOSTER VACCINE (1 of 2) 2039 HIB VACCINE Aged Out No longer eligi ble based on patient's age to complete this topic MENINGOCOCCAL (Group B) VACC INE SHARED DECISION-MAKING Aged Out No longer eligibl e based on patient's age to complete this topic MENINGOCOCCAL GROUPS A/C/Y/W VACCINE Aged Out No longer eligible b ased on patient's age to complete this topic PNEUMOCOCCAL VACCINE Aged Out No long er eligible based on patient's age to complete this topic Insurance [facility]
--- OUTSIDE RECORDS SUMMARY | 2025-07-06 08:49 | XMS_ITS | Data Portability ---
Author Organization 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 Patient will come back in a year unless there are new symptoms. [email or web address] Not available 11/20/2023 16:48:46 Plan of Treatment Reminders Order Date Submit Date Provider Last Modified By Organization Details Last Modified Time Details Appointments None recorded. Lab pap, IG + HR HPV - HPV regardless but if HPV is positive need subtyping 16,18/[address]/GC/Trich 2024 025 [facility] (Lab), [address], [place], [address], 15:30:23 Referral None recorded. Procedures None recorded. Surgeries None recorded. Imaging US, pelvis 2024 025 [email or web address] [address], [address], [place], [address], 5 10:42:04 US, transvagina l 2024 025 [email or web address] [address], [address], [place], [address], 5 10:42:04 US, pelvis, complete 2024 025 [email or web address] [facility], [facility] [address], [place], [address], 16:45:50 Medication Orders None recorded. Patient TargetsNo targets recorded. Patient InstructionsNo instructions recorded. Reason for Referral None Reported. Results Created Date Observation Date Name Description Value Unit Range Abnormal Flag Note LastModifiedBy Organization Detail LastModifiedTime 11/20/19 24 11/20/2023 IMAGE GUIDE D PAP AND HPV REGAR DLESS image guided Pap, HPV regardless of Pap result SEE RESULT S BELOW CASE REPOR T: Cytol ogy Gynec ologi josef Repor t Case: [id number] Autho nessa mesa Provi chad: Evens Vega Colle cted: 11/19 1709 ACADEMIC DEAN Order ing Locat ion: [place] [facility] Recei marline: 11/20 0319 First Scree n: Zully Sahni , CT Speci men: Scree stanford Pap - Image d, Cervi x STATE MENT OF ADEQU ACY: Satis facto ry for evalu ation Trans forma tion zone compo nent prese nt FINAL DIAGN OSIS: Negat jeff for Intra epith elial Lesio n or Murray sparrow (NIL) . Alyse kauffman jewel d by Zully Sahni , [...] test with an inher ent false negat jeff rate. Liqui d-bas ed sampl ing may decre ase, but will not elimi ken, false negat jeff resul ts. A negat jeff resul t does not precl ude the [...] as clini caryn rodriguez nted. Not Available [facility] (Lab) [address], [place], [address], 11/25/2023 09:11:36 10/07/19 25 10/07/2024 IMAGE GUIDE D PAP AND HPV REGAR DLESS image guided Pap, HPV regardless of Pap result SEE RESULT S BELOW CASE REPOR T: Cytol ogy Gynec ologi josef Repor t Case: [id number] Autho nessa g Provi chad: Dermo dy, Tiffany , ANP, RAMP ATTENDANT Colle cted: 10/07 1718 Order ing Locat ion: [place] [facility] [place] Recei marline: 10/08 1018 First Scree n: Antonio Del Rio, CT Rescr een: Sallie Baxter, CT Speci men: Juan coyne Pap - Image d, Cervi x STATE MENT OF ADEQU ACY: Satis facto ry for evalu ation Trans forma tion zone compo nent prese nt Indio jiménez ring infla mmati on prese nt ----- ----- ----- ----- ----- ----- ----- ----- ----- ----- ----- ----- ----- ----- ----- ----- ----- ---- FINAL DIAGN OSIS: Negat jeff for Intra epith elial Lesio n or Murray sparrow ([facility]) . Elect kj kauffman jewel d by Sallie reynolds, CT on 025 at 1426 FITTER HAND ----- ----- ----- ----- ----- ----- ----- [...] Neopl gloria (if appli cable ): Signi ficterry t Clini josef Findi ngs: Other Histo ry: Hormo roberto (if appli cable ): PAP EDUCA JAKE L NOTE: The Pap Test is a scree stanford test with an inher ent false negat jeff rate. Liqui d-bas ed sampl ing may decre ase, but will not elimi ken, false negat jeff resul ts. A negat jeff resul t does not precl ude the [...] is recom beatriz d, as clini caryn warra nted. Not Available [facility] (Lab) [address], [place], [address], 10/13/2024 15:30:23 10/07/19 25 10/07/2024 TRICH OMONA S VAGIN JUDIE (RRNA ) trichomonas vaginalis ribosomal RNA (rrna) Negati ve negati ve Not Available [facility] (Lab) [address] [place], [address], 10/13/2024 15:30:24 10/07/19 25 10/07/2024 CT/GC (JEFERSON) , THINP REP VIAL chlamydia trachomatis, PCR Negati ve negati ve Not Available [facility] (Lab) [address] [place], [address], 10/13/2024 15:30:24 10/07/19 25 10/07/2024 CT/GC (JEFERSON) , THINP REP VIAL neisseria gonorrhoeae, PCR Negati ve negati ve Not Available [facility] (Lab) [address] [place], [address], 10/13/2024 15:30:24 10/08/19 25 10/08/2024 US, pelvi s No observ ation record ed. [email or web address] [address], [place], [address], 10/08/2024 18:16:19 10/08/19 25 10/08/2024 US, trans vagin al No observ ation record ed. [email or web address] [address], [place], [address], 10/08/2024 18:16:29 10/08/19 25 10/08/2024 US, pelvi s No observ ation record ed. [email or web address] [address], [place], [address], 10/19/2024 14:28:24 Result Notes None recorded. Problems Name Problem SNOMED Code Status Onset Date Resolution Date Notes Provider Name and Address Organization Details Recorded Time Venereal disease screenin g Completed 201308/07/2021 Screenin g examinat ion for venereal disease; Recorded Elsewher e: No Locat ion: [facility] S ource: EHR Rn Tele abhinav: N Practi ce ID: 0001 Dilan lable Time: 05:15:00 PM Luz parr [facility] 10:17:21 Speciali zed medical examinat ion Completed 201308/07/2021 Routine gynecolo gical examinat ion;Prac lynda ID: 0001 Luz parr [facility] 10:18:32 Speciali zed medical examinat ion Completed 201308/07/2021 Other specifie d chlamydi al diseases ;Practic e ID: 0001 Luz parr [facility] 10:18:34 Screenin g for malignan t neoplasm of cervix Completed 201308/07/2021 Pap Smear;Pr actice ID: 0001 Luz parr, [facility] 10:17:24 Cytologi c finding Completed 201308/07/2021 Papanico laou smear of cervix with high grade squamous intraepi thelial lesion (HGSIL); Recorded Elsewher e: No Locat ion: [facility] S ource: EHR Rn Tele abhinav: N Smithati ce ID: 0001 Dilan lable Time: 03:00:00 PM Luz parr, [facility] 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 10:18:03 Cytologi c finding Completed 201408/07/2021 Pap Abnormal LGSIL;Pr actice ID: 0001 Luz parr, [facility] 10:18:29 Amenorrh ea [id number] Completed 201408/07/2021 AMENORRH EA;Pract ice ID: 0001 Luz parr, [facility] 10:17:12 Pregnanc y test positive [id number] Completed 201408/07/2021 Pregnanc y examinat ion or test, positive result;R ecorded Elsewher e: No Locat ion: [facility] S ource: EHR Rn Tele abhinav: N Practi ce ID: 0001 Dilan lable Time: 04:15:00 PM Luz parr [facility] 10:17:52 Antenata l screenin g Completed 201408/07/2021 ANTENATA L SCREENIN G NEC;Tio rded Elsewher e: No Locat ion: [facility] S ource: EHR Rn Tele abhinav: N Practi ce ID: 0001 Dilan lable Time: 10:45:00 AM [facility] 10:17:48 Primigra jes [id number] Completed 201408/07/2021 Supervis ion of normal first pregnanc y;Record ed Elsewher e: No Locat ion: [facility] S ource: EHR Rn Tele abhinav: N Practi ce ID: 0001 Dilan lable Time: 04:30:00 PM Luz Hong [facility] 10:17:04 Routine antenata l care Completed 201408/07/2021 SUPERVIS OTH NORMAL PREG;Pra ctice ID: 0001 Luz Hong [facility], [facility] 10:17:06 Abnormal cervical Papanico laou smear [id number] Completed 201408/07/2021 Other abnormal papanico laou smear of cervix and cervical HPV;Tio rded Elsewher e: No Locat ion: [facility] S ource: EHR Rn Tele abhinav: N Practi ce ID: 0001 Dilan lable Time: 10:00:00 AM Luz parr [facility] 10:18:20 anatomy study Completed 201408/07/2021 SCRN ANATMC SURVEY;R ecorded Elsewher e: No Locat ion: Cheri max [facility] S ource: EHR Rn Tele abhinav: N Smithati ce ID: 0001 Dilan lable Time: 02:30:00 PM Luz parr, [facility] 10:17:58 Known OR suspecte d abnormal ity affectin g manageme nt of mother Completed 201408/07/2021 Other known or suspecte d abnormal ity, not elsewher e classifi ed, affectin g manageme nt of mother, antepart um conditio n or complica tion;Rec orded Elsewher e: No Locat ion: [facility] S ource: EHR Rn Tele abhinav: N Smithati ce ID: 0001 Dilan lable Time: 11:00:00 AM Luz parr, [facility] 10:18:41 Ultrason ography Completed 201408/07/2021 Antenata l screenin g for malforma tion using ultrason ics;Tio rded Elsewher e: No [facility] S ource: EHR Rn Tele abhinav: N Smithati ce ID: 0001 Dilan lable Time: 11:00:00 AM Luz parr, [facility] 10:17:16 Congenit al malforma tion [id number] Completed 201408/07/2021 Antenata l screenin g for malforma tion using ultrason ics;Tio rded Elsewher e: No [facility] S ource: EHR Rn Tele abhinav: N Smithati ce ID: 0001 Dilan lable Time: 11:00:00 AM Luz parr, [facility] 10:18:00 Gestatio n period, 30 weeks [id number] Completed 201408/07/2021 30 weeks gestatio n of pregnanc y;Record ed Elsewher e: No Locat ion: [facility] S ource: EHR Rn Tele abhinav: N Smithati ce ID: 0001 Dilan lable Time: 03:00:00 PM Luz parr [facility] 10:18:43 Diet educatio n Completed 201408/07/2021 Dietary counseli ng and surveill ance;Rec orded Elsewher e: No Locat ion: [facility] S ource: EHR Rn Tele abhinav: N Practi ce ID: 0001 Dilan lable Time: 10:45:00 AM Luz parr [facility] 10:17:02 Dietary manageme nt surveill ance Completed 201408/07/2021 Dietary counseli ng and surveill ance;Rec orded Elsewher e: No Locat ion: [facility] S ource: EHR Rn Tele abhinav: N Practi ce ID: 0001 Dilan lable Time: 10:45:00 AM Luz parr, [facility] 1 10:18:16 Gestatio n period, 32 weeks [id number] Completed 201408/07/2021 32 weeks gestatio n of pregnanc y;Record ed Elsewher e: No Locat ion: [facility] S ource: EHR Rn Tele abhinav: N Practi ce ID: 0001 Dilan lable Time: 10:45:00 AM Luz parr [facility] 1 10:18:50 Pregnanc y, childbir th and puerperi um finding Completed 201408/07/2021 Encounte r for supervis ion of normal first pregnanc y, third trimeste r;Record ed Elsewher e: No Locat ion: [facility] S ource: EHR Rn Tele abhinav: N Practi ce ID: 0001 Dilan lable Time: 03:45:00 PM Luz parr [facility] 1 10:18:10 Term pregnanc y delivere d [id number] Completed 201508/07/2021 Encounte r for full-ter m uncompli cated delivery ;Practic e ID: 0001 Luz parr [facility] 10:17:28 High grade squamous intraepi thelial lesion on cervical Papanico laou smear [id number] Completed 201508/07/2021 High grade intrepit h lesion cyto smr crvx (HGSIL); Recorded Elsewher e: No Locat ion: Bogdan lebron [facility] S ource: EHR Rn Tele abhinav: N Smithati ce ID: 0001 Dilan lable Time: 02:30:00 PM Luz Halterry parr [facility] 10:18:[address] Concept Completed 201508/07/2021 Encntr for bumper operator exam (general ) (routine ) w/o abn findings ;Recorde d Elsewher e: No [facility] S ource: EHR Rn Tele abhinav: N Practi ce ID: 0001 Dilan lable Time: 08:30:00 AM Luz [place] karolyn [facility] 10:18:[address] Concept Completed 201608/07/2021 Maternal care for oth abnormal ity and damage, unsp;Rec orded Elsewher e: No Locat ion: Bogdan lebron [facility] S ource: EHR Rn Tele abhinav: N Practi ce ID: 0001 Dilan lable Time: 08:00:00 AM Luz Hal parr [facility] 10:17:33 Gestatio n period, 21 weeks [id number] Completed 201608/07/2021 21 weeks gestatio n of pregnanc y;Record ed Elsewher e: No Locat ion: Bogdan lebron [facility] S ource: EHR Rn Tele abhinav: N Practi ce ID: 0001 Dilan lable Time: 08:00:00 AM Luz parr, [facility] 1 10:18:13 Gestatio n period, 24 weeks [id number] Completed 201608/07/2021 24 weeks gestatio n of pregnanc y;Record ed Elsewher e: No Locat ion: Bogdan lebron [facility] S ource: EHR Rn Tele abhinav: N Practi ce ID: 0001 Dilan lable Time: 02:15:00 PM Luz parr, [facility] 10:18:05 Clinical finding Completed 201608/07/2021 Unspecif ied placenta l disorder , second trimeste r;Record ed Elsewher e: No Locat ion: Bogdan lebron [facility] S ource: EHR Rn Tele abhinav: N Practi ce ID: 0001 Dilan lable Time: 02:15:00 PM Luz parr, [facility] 10:17:41 Gestatio n period, 28 weeks [id number] Completed 201608/07/2021 28 weeks gestatio n of pregnanc y;Record ed Elsewher e: No [facility] S ource: EHR Rn Tele abhinav: N Practi ce ID: 0001 Dilan lable Time: 02:15:00 PM Luz parr, [facility] 10:18:53 Gestatio n period, 31 weeks [id number] Completed 201608/07/2021 31 weeks gestatio n of pregnanc y;Record ed Elsewher e: No [facility] S ource: EHR Rn Tele abhinav: N Practi ce ID: 0001 Dilan lable Time: 04:00:00 PM Luz parr, [facility] 10:18:40 finding Completed 201608/07/2021 Matern care for oth or susp poor fetl grth, third tri, unsp;Rec orded Elsewher e: No Locat ion: Bogdan lebron [facility] S ource: EHR Rn Tele abhinav: N Practi ce ID: 0001 Dilan lable Time: 04:00:00 PM Luz oHng karolyn, [facility] 10:17:35 Normal pregnanc y in multigra jes [id number] 4106 Completed 201608/07/2021 Encounte r for supervis ion of other normal pregnanc y, third trimeste r;Record ed Elsewher e: No Locat ion: Bogdan lebron [facility] S ource: EHR Rn Tele abhinav: N Practi ce ID: 0001 Dilan lable Time: 03:15:00 PM Luz [place] karolyn, [facility] 10:18:25 Clinical finding Completed 201608/07/2021 Unspecif ied placenta l disorder , third trimeste r;Record ed Elsewher e: No [facility] S ource: EHR Rn Tele abhinav: N Practi ce ID: 0001 Dilan lable Time: 03:00:00 PM Luz Hong karolyn, [facility] 10:17:43 Gestatio n period, 35 weeks [id number] Completed 201608/07/2021 35 weeks gestatio n of pregnanc y;Record ed Elsewher e: No [facility] S ource: EHR Rn Tele abhinav: N Practi ce ID: 0001 Dilan lable Time: 03:00:00 PM Luz [place] karolyn, [facility] 10:18:52 False labor at or after 37 complete d weeks of gestatio n [id number] Completed 201608/07/2021 False labor at or after 37 complete d weeks of gestatio n;Practi ce ID: 0001 Luzemi parr, [facility] 10:17:27 Gestatio n period, 40 weeks [id number] Completed 201608/07/2021 40 weeks gestatio n of pregnanc y;Practi ce ID: 0001 Luz parr, [facility] 10:18:26 Group B streptoc occus infectio n in mother complica jamaica husain th [id number] 822886 Completed 201608/07/2021 Streptoc occus B carrier state complica joseg childleander th;Pract ice ID: 0001 Luz parr, [facility] 10:16:59 Lochia finding Completed 201608/07/2021 Encounte r for routine postpart um follow-u p;Record ed Elsewher e: No Locat ion: [facility] S ource: EHR Rn Tele abhinav: N Practi ce ID: 0001 Dilan lable Time: 10:45:00 AM [facility] 10:18:11 Low risk human papillom avirus deoxyrib onucleic acid detected in specimen from cervix [id number] 207593 Completed 201708/07/2021 Cervical low risk human papillom avirus (HPV) DNA test positive ;Recorde d Elsewher e: No Locat ion: [facility] S ource: EHR Rn Tele abhinav: N Practi ce ID: 0001 Dilan lable Time: 01:00:00 PM [facility] 10:17:14 Pregnanc y detectio n examinat ion Completed 201708/07/2021 Encounte r for pregnanc y test, result positive ;Recorde d Elsewher e: No Locat ion: [facility] S ource: EHR Rn Tele abhinav: N Practi ce ID: 0001 Dilan lable Time: 01:00:00 PM Luz parr [facility] 11/29/202 1 10:18:49 Gestatio n period, 9 weeks [id number] Completed 201708/07/2021 9 weeks gestatio n of pregnanc y;Record ed Elsewher e: No Locat ion: [facility] S ource: EHR Rn Tele abhinav: N Practi ce ID: 0001 Dilan lable Time: 02:30:00 PM Luz parr, [facility] 10:18:55 Rubella screenin g status [id number] Completed 201708/07/2021 Encounte r for antenata l screenin g, unspecif ied;Tio rded Elsewher e: No [facility] S ource: EHR Rn Tele abhinav: N Practi ce ID: 0001 Dilan lable Time: 02:45:00 PM Luz parr, [facility] 10:17:50 Antenata l screenin g for malforma tion Completed 201808/07/2021 Encounte r for antenata l screenin g for malforma tions;Re corded Elsewher e: No [facility] S ource: EHR Rn Tele abhinav: N Practi ce ID: 0001 Dilan lable Time: 02:30:00 PM Luz parr, [facility] 10:18:45 Uterine size for dates discrepa ncy Completed 201808/07/2021 Uterine size-mars e discrepa ncy, third trimeste r;Record ed Elsewher e: No Locat ion: [facility] S ource: EHR Rn Tele abhinav: N Practi ce ID: 0001 Dilan lable Time: 04:15:00 PM Luz parr, [facility] 10:17:31 Gestatio n period, 36 weeks [id number] Completed 201808/07/2021 36 weeks gestatio n of pregnanc y;Practi ce ID: 0001 Luz parr, [facility] 10:18:[address] Concept Completed 201808/07/2021 Matern care for abnlt fetl hrt rate or rhym, 3rd tri, unsp;Rec orded Elsewher e: No Locat ion: Bogdan lebron [facility] S ource: EHR Rn Tele abhinav: N Practi ce ID: 0001 Dilan lable Time: 03:15:00 PM Luz parr [facility] 10:17:37 Disorder of pregnanc y Completed 201808/07/2021 Polyhydr amnios, third trimeste r, not applicab le or unsp;Rec orded Elsewher e: No [facility] S ource: EHR Rn Tele abhinav: N Practi ce ID: 0001 Dilan lable Time: 03:00:00 PM Luz parr [facility] 10:17:39 Gestatio n period, 38 weeks [id number] Completed 201808/07/2021 38 weeks gestatio n of pregnanc y;Record ed Elsewher e: No [facility]: [facility] S ource: EHR Rn Tele abhinav: N Practi ce ID: 0001 Dilan lable Time: 03:00:00 PM Luz parr [facility] 10:17:10 Gestatio n period, 37 weeks [id number] Completed 201808/07/2021 37 weeks gestatio n of pregnanc y;Record ed Elsewher e: No [facility]: [facility] S ource: EHR Rn Tele abhinav: N Practi ce ID: 0001 Dilan lable Time: 03:00:00 PM Luz parr [facility] 10:18:18 Gestatio n period, 34 weeks [id number] Completed 201808/07/2021 34 weeks gestatio n of pregnanc y;Record ed Elsewher e: No Locat ion: Bogdan lebron [facility] S ource: EHR Rn Tele abhinav: N Smithati ce ID: 0001 Dilan lable Time: 03:00:00 PM Luz parr, [facility] 10:17:08 Single live from singleto n pregnanc y [id number] Completed 201808/07/2021 Single live ;Re corded Elsewher e: No Locat ion: [facility] S ource: EHR Rn Tele abhinav: N Smithati ce ID: 0001 Dilan lable Time: 03:00:00 PM Luz Hong [facility], [facility] 10:17:[address] Concept Completed 201808/07/2021 Encntr for general adult medical exam w/o abnormal findings ;Recorde d Elsewher e: No [facility] S ource: EHR Rn Tele abhinav: N Smithati ce ID: 0001 Dilan lable Time: 11:00:00 AM Luz parr, [facility] 10:18:06 Pregnanc y test negative [id number] Completed 201808/07/2021 Encounte r for pregnanc y test, result negative ;Recorde d Elsewher e: No [facility]: [facility] S ource: EHR Rn Tele abhinav: N Smithati ce ID: 0001 Dilan lable Time: 04:00:00 PM Luz parr, [facility] 10:17:54 Human papillom avirus deoxyrib onucleic acid detected , high risk on cervical specimen [id number] Completed 201808/07/2021 Cervical high risk HPV DNA test positive ;Recorde d Elsewher e: No [facility]at [facility]: [facility] S ource: EHR Rn Tele abhinav: N Smithati ce ID: 0001 Dilan lable Time: 04:00:00 PM [facility] 1 10:18:47 Atypical squamous cells of undeterm ined signific ance on cervical Papanico laou smear [id number] Completed 201808/07/2021 Atyp squam cell of undet signfc cyto smr crvx (ASC-US) ;Recorde d Elsewher e: No Locat ion: [facility] S ource: EHR Rn Tele abhinav: N Practi ce ID: 0001 Dilan lable Time: 04:00:00 PM [facility] 1 10:18:21 Problem Notes None recorded. Procedures Surgical History Date Name Laterality Status Provider Name and Address Organization Details Recorded Time 5 Date of Last Pap Smear completed Diana Quevedo [facility] 11/03/2024 16:25:41 9 Colposcopy completed Luz Hong [facility] 08/07/2021 10:21:52 Imaging Results None recorded. Procedure Notes None recorded. Medical Equipment None Reported. Allergies Allergen ID Allergen Name Allergen Category Reaction Reaction Severity Criticality Documentation Date Start Date Code Code System Note Provider Name and Address Organization Details Recorded Time 2323 cefaclor medicatio n Not available Not available Not available 06/16/2020 2176 RxNorm Davida Jain [facility] 0 11:05:51 Medications Name Sig Start [...] Prescrib ed Elsewher e: No Locat ion: [facility] M odify By: lorena Lebron ncounter DateTime : 11/15/19 16 10:21:53 AM Not Available Not Available Not Available Xanax 0.25 mg tablet take 1 tablet by oral route 1 hour before procedur e. 03/07 completed Prescrib ed Elsewher e: No Locat ion: [facility] odify By: lorena Max jose f DateTime : 05/18/20 14 08:27:57 AM Not Available Not Available Not Available tobramyci n 0.3 % eye drops 06/16 completed Not Available Not Available Not Available norgestim ate-ethin yl estradiol 0.18mg/0. 215mg/0.2 5mg-0.035 mg(28)tab let Take 1 tablet every day by oral route. 11/19 completed Not Available Not Available Not Available Vitamin D2 1,250 mcg (50,000 unit) capsule take 1 capsule by oral route every week 01/16 completed Prescrib ed Elsewher e: No Locat ion: [facility] odify By: yanyy Esther shen DateTime : 03/23/20 15 11:07:50 AM Not Available Not Available Not Available norethind fela (contrace ptive) 0.35 mg tablet 11/16 completed Not Available Not Available Not Available drospiren one 3 mg-ethiny l estradiol 0.02 mg tablet TAKE 1 TABLET DAILY. NEED AN APPOINTM ENT FOR ANY FUTURE REFILLS 11/16 completed Not Available Not Available Not Available Jenna uo DHA 29 mg-1 mg-400 mg oral pack take 2 tablets by oral route daily 04/19 completed Prescrib ed Elsewher e: No Locat ion: [facility] odify By: erasmo graves DateTime : 03/21/20 17 08:58:48 AM Not Available Not Available Not Available FILLING WINDER-PNV-DH A 28 mg iron-1 mg-200 mg capsule 11/19 completed Not Available Not Available Not Available Vitals Date Recorded Body height Body mass index (BMI) Body weight Systolic And Diastolic Provider Name and Address Organization Details Last Updated DateTime 10/07/2024 160.02 cm 25.3 kg/m2 07433.99 g 119/76 mm[Hg] Dinah Alvarez [facility] 10/07/2024 17:44:32 Date Recorded Body height Body mass index (BMI) Body weight Systolic And Diastolic Provider Name and Address Organization Details Last Updated DateTime 11/03/2024 160.02 cm 24.8 kg/m2 43597.93 g 130/77 mm[Hg] Diana Quevedo [facility] 11/03/2024 16:25:05 Date Recorded Body height Body mass index (BMI) Body weight Systolic And Diastolic Provider Name and Address Organization Details Last Updated DateTime 11/16/2021 160.02 cm 22.7 kg/m2 75623.54 g 110/64 mm[Hg] Valencia Gonzales [facility] 11/16/2021 16:02:34 Date Recorded Body weight Systolic And Diastolic Provider Name and Address Organization Details Last Updated DateTime 11/20/2023 94442.18 g 127/76 mm[Hg] Valencia Castaneda [facility] 11/20/2023 16:52:00 Social History Question Answer Notes LastModified by Organizat ion Details LastModified Time Tobacco Smoking Status Never Smoker Valencia Gonzales [facility] 11/16/2021 16:02:50 Do You Have An Advance Directive? No Information n ot available 11/16/2021 How Many Years Have You Consumed Alcohol? 13 [email or web address] Information not available 10/06/2024 Are You Blind Or Do You Have Difficulty Seeing? No Information n ot available 11/16/2021 What Is Your Level Of Caffeine Consumption? Moderate [email or web address] Information not available 10/06/2024 How Much Tobacco Do You Chew? None [...] Or The Highest Degree You Have Received? [id number] [email or web address] Information not available 10/07/2024 Are There Any Guns Present In Your [...] IV Drugs? No Information not available 11/16/2021 Do You Have Difficulty Walking Or Climbing Stairs? No Information not available 11/16/2021 Sex: Unknown Functional Status Question Answer Note LastModified by Organizat ion Details LastModified Time Do you use any illicit or recreational drugs? No Information not available 11/16/2021 What is your level of alcohol consumption? Occasional [id number] Information not available 07/12/2020 Are you able to walk independently without assistance or assistive devices? [email or web address] Information not available 11/16/2021 Are you able to care for yourself independently? 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 No Information not available 11/16/2021 What is your exercise level? Moderate [id number] Information not available 07/12/2020 Mental Status Question Answer Note LastModified by Organization D etails LastModified Time Do you feel stressed (tense, restless, nervous, or anxious, or unable to sleep at night)? [id number] [email or web address] Information not available 10/06/2024 Family History Relationship Description Onset Age of this Age Resolved Age Notes LastModified by Organization Details LastModified Time Father No current problems or disability [email or web address] Not available 08/07 10:27:45 Mother No current problems or disability [email or web address] Not available 08/07 10:27:45 Medical History Condition Response Other History of abnormal pap Y Gynecological History Statement/Question Response Flow Moderate Date of LMP 10/17/2024 N Was last menstrual period normal Y STIs/STDs N Date of control 03/08/2019 None Desired Control Method None Abnormal Pap Y On BCP's at Conception? N HPV Vaccine N Colposcopy 04/14/2019 Duration of Flow (days) 7 Current Control Method Partner Vas ectomy Age at First Child 25 Are cycles usually normal Y Frequency of Cycle (Q days) 28 Sexually Active? Y Age of first menstrual cycle 11 Date of Last Pap Smear 10/07/2024 Sexual Problems? N LMP Definite N Obstetrics History GPAL:G 4 P 3 0 1 3 Type Value Full Term 3 Spontaneous 1 Living 3 Total 4 Past Encounters Encounter ID Performer Location Encounter Start Date Encounter Closed Date Diagnosis/Indication Diagnosis SNOMED-CT Code Diagnosis ICD10 Code Diagnosis IMO Codes Diagnosis Note [id number] Fernanda Gabriel CNM [facility] [address] [address] 06/16/2020 15:51:37 06/17/2020 15:36:04 Gynecologic examination 42843772 Z01.419 Take Calcium with Vitamin D 1200mg daily if not receiving in daily diet. It is strongly advised to have an annual flu shot and up can obtain at most pharmacies . If you have not had a TDap shot in the last 10 years you should obtain one as well. Discussed with patient & provided with informatio n regarding Gardisil vaccine to prevent the 4 strains for HPV that cause cervical cancer if under age 26. Encourage safe sexual practices, to use condoms and limit partners if not already in a monogamous relationsh ip. Do monthly self breast exams. Have mammogram yearly or every other year depending on family history. BRCA testing is now available for patients with strong genetic history of female cancer. If interested contact the office. Engage in daily exercise of low impact aerobic exercise 45-60 minutes 4-5 times weekly. Avoid tobacco and illicit drugs as well as using moderation with alcohol intake less than 1-2 8 oz beverages daily. This lifestyle behavior pattern will lead to less health conditions and longer life span. If BMI greater than 25 weight watchers or dietary consult advised. Patient received above instructio ns, and questions have been answered. If you have any questions please call or respond to this email. Patient was made aware of the patient portal and may obtain a paper copy of today's plan if desired. [facility] [id number] Z30.9 Pt would like to switch from p.o.p. to what she took in the past. Consent read and signed. [id number] Fernanda Gabriel, [facility] [address],[facility] [place] [address] 08/07/2021 15:23:46 08/07/2021 18:18:56 Gynecologic examination 37502336 Z01.419 Z11.51 Take Calcium with Vitamin D 1200mg daily if not receiving in daily diet. It is strongly advised to have an annual flu shot and up can obtain at most pharmacies . If you have not had a TDap shot in the last 10 years you should obtain one as well. Discussed with patient & provided with informatio n regarding Gardisil vaccine to prevent the 4 strains for HPV that cause cervical cancer if under age 26. Encourage safe sexual practices, to use condoms and limit partners if not already in a monogamous relationsh ip. Do monthly self breast exams. Have mammogram yearly or every other year depending on family history. BRCA testing is now available for patients with strong genetic history of female cancer. If interested contact the office. Engage in daily exercise of low impact aerobic exercise 45-60 minutes 4-5 times weekly. Avoid tobacco and illicit drugs as well as using moderation with alcohol intake less than 1-2 8 oz beverages daily. This lifestyle behavior pattern will lead to less health conditions and longer life span. If BMI greater than 25 weight watchers or dietary consult advised. Patient received above instructio ns, and questions have been answered. If you have any questions please call or respond to this email. Patient was made aware of the patient portal and may obtain a paper copy of today's plan if desired. [facility] [id number] Z30.9 Pt has had breakthrou gh bleeding early 2nd week of pill pack for many months. Has done well in the past with ortho tri cyclen. Will switch with next pack. RTC in 3 months for med check. [id number] Loraine Diaz [facility] [address] [address] 11/16/2021 15:47:41 11/16/2021 16:32:30 Contraception care management [id number] Z30.9 Today we discussed her current BCP.She switched from previous BCP b/c she was having her period in the 3rd wek of the pack.Now she is having her period start in the 2nd wk in her BCP's.Her spouse has had a vasectomy. She feels she doesn't really need BCP for control purposes.H as been on BC for many years minus when she was with her kids.Her cycle used to be very crampy.Unc ertain what her cycle would be like now if she was not on anything. We discussed trial of SLYND or else staying off BC x 3mos and exploring what her new norm is.She opts to see what new period norm is.We agreed that if she gets to the second month & feels periods still very painful can call and curing pickling packer samples of SLYND to try; then RTO x 3mos for a med chk She verbalized understand ing and agreeable to this current plan. Time spent in visit is a total of 15 mins with at least 50% of visit consisting of counseling and review of plan of care.Addit ional precaution linda measures were taken to minimize potential exposure to the Covid-19 virus during this patient s visit, including available hand technology administrator upon arrive, temperatur e check and being asked a series of screening questions. All staff wore face coverings during this encounter, as well as provided additional cleaning and sanitizing of all surfaces, including countertop s, pens, chairs, door handles, light switches, etc, prior to and following the patient s visit. [id number] Loraine Diaz [facility] [address] [address] 11/20/2023 16:32:23 11/20/2023 18:05:11 Gynecologic examination [id number] Z01.419 Z11.51 Take Calcium with Vitamin D 1200mg daily if not receiving in daily diet. It is strongly advised to have an annual flu shot and up can obtain at most pharmacies . If you have not had a TDap shot in the last 10 years you should obtain one as well. Discussed with patient & provided with informatio n regarding Gardisil vaccine to prevent the 4 strains for HPV that cause cervical cancer if under age 26. Encourage safe sexual practices, to use condoms and limit partners if not already in a monogamous relationsh ip. Do monthly self breast exams. Have mammogram yearly or every other year depending on family history. BRCA testing is now available for patients with strong genetic history of female cancer. If interested contact the office. Engage in daily exercise of low impact aerobic exercise 45-60 minutes 4-5 times weekly. Avoid tobacco and illicit drugs as well as using moderation with alcohol intake less than 1-2 8 oz beverages daily. This lifestyle behavior pattern will lead to less health conditions and longer life span. If BMI greater than 25 weight watchers or dietary consult advised. Patient received above instructio ns, and questions have been answered. If you have any questions please call or respond to this email. Patient was made aware of the patient portal and may obtain a paper copy of today's plan if desired. Pap/hpv sent STD Screen declined Genetic Screen discussed Colon Screen na Dexa Screen na Routine Labs PCP [id number] Valentin Hinton MD [facility] [address] [address] 10/07/2024 17:38:52 10/07/2024 18:25:29 Abnormal uterine bleeding [id number] 9100 N93.9 Discussed possible causes of bleeding with/after intercours e, including vaginal dryness/fr iction during intercours e, injury to tissue, infection, cervical dysplasia, or cervical polyps. Pap smear and STI testing sent to r/o infection and cervical dysplasia. Recommende d coconut or olive oil for lubricatio n during intercours e. Recommende d pelvic u/s for further evaluation and subsequent f/u in office. Venereal d isease screening [id number] Z11.3 [id number] Valentin Hinton MD [facility] [address] [address] 10/08/2024 17:12:16 10/09/2024 10:42:04 Irregular periods 05744705 N92.5 [id number] Valentin Hinton MD [facility] [address] [address] 11/03/2024 16:21:19 11/03/2024 17:17:45 Postcoital bleeding 10037950 N93.0 - patient reports intermitte nt coital bleeding, resolves after intercours e- no pain with intercours e- pap smear normal 1 month ago- pelvic US demonstrat es possible cervical polyp, could be cause of coital bleeding- bleeding now resolved- discussed expectant management vs surgical management with hysterosco py and polypectom y in office- discussed risks of surgery, including bleeding, infection, and injury to adjacent structures - patient would like expectant management as bleeding has resolved; will call if bleeding resumes to schedule in office procedure- consents signed today Health Concerns Section Related Observation LastModified by Organization Detai ls LastModified Time None Recorded Concern Status LastModified by Organization Details LastModified Time None Recorded Advance Directives Directive N: Payers Insurance Date Sequence Insurance Name Policy Number Policy Banuelos Covered Member ID Banuelos Member ID Guarantor Name 11/03/2024 1 [facility] [id number] [place] J [place] [id number] [place] [employer] 10/31/2024 2 [facility] [id number] [place] Soriano [id number] Spring Dust Notes Date Note Type Note Provider Name and Address Organization Details Recorded Time 2 text/html ROS as noted in the HPI Here today for med check of BCP switch. Loraine Diaz, MINNIE- [address], [place], [address], [facility] 11/16/2021 16:27:53 4 text/html Annual GYNReported by PatientHistoryFor history, patient reportsno gynecologic complaints.Genitourina ry symptomsFor menstrual cycle, patient reportsnormal menses. For urinary symptoms, patient reportsno hematuriaandno incontinence. For vulva, patient reportsno genital lesion. For vagina, patient reportsnormal vaginal discharge.Breast symptomsFor breast, patient reportsno breast pain,no breast lump, andno nipple discharge.Contraceptio nFor current contraception, patient reportsbirth control not practiced.Endocrine symptomsFor sexual complaints, patient reportsno sexual complaints,no pain during intercourse, andnormal libido. For menopausal symptoms, patient reportsno menopausal symptomsandnormal vaginal lubrication.Psychologi josef symptomsFor psychological symptoms, patient reportsno depression,no anxiety, andno pmdd.Preventative measuresFor preventive measures, patient reportsencourage self breast examination,encourage regular exercise,encourage no tobacco use,encourage regular mammograms starting age 40, andfollowed with yearly pap smears. Loraine Diaz, MINNIE- [address], [place], [address], [facility] 11/20/2023 18:05:00 5 text/html Patient c/o bright red bleeding during intercourse with her . Patient states that she has noticed this bleeding nearly every time with intercourse for the past few months (2-3 times per week). Patient states that the bleeding stops after intercourse. Denies pain with intercourse.Denies any vaginal odor, itching, discharge, pain. Denies GI/ sx.Patient states that cycles have recently been regular, every 28 days, last 7 days with moderate flow. TIFFANY ALARCON NP [address], [place], [address], [facility] 10/07/2024 18:13:24 5 text/html Patient presents for US follow up. She was seen about 1 month ago for a 6 month history of intermittent bleeding with sex. She denies pain. No clear triggers such as position or lubricant. No hx prior to the past 6 months. She also had bleeding with her pap smear this year which is abnormal for her. Since her last visit, she has had no bleeding with intercourse. No new symptoms. JEFFREY RG MD [address], [place], [address], [facility] 11/03/2024 17:14:42 OBGyn Episode Ob Episode Information Episode Created Date Number of Fetuses Patient Bloodtype Patient rh Status Prepregnancy Weight lbs Domestic Partner Domestic Partner Phone Father Name Gang Bore Operator Status 06/16/20 20 1 CLOSED Fetus Data First Name Last Name Admitted to NICU Weight (g) Sex Living Outcome Pediatric Complications Fetus ID Race Codes Race Delivery Type Full Term 5199 Vaginal Delivery Chuck Calculation Initial Chuck Date Initial Exam Date Initial Exam Provider Initial Ultrasound Date Last Menstrual Period Date Ultra Sound Weeks Gestation 0 Eighteen To Twenty Week Chuck Update [...] Domestic Partner Domestic Partner Phone Father Name Gang Bore Operator Status 06/16/20 20 1 CLOSED Fetus Data First Name Last Name Admitted to NICU Weight (g) Sex Living Outcome Pediatric Complications Fetus ID Race Codes Race Delivery Type Full Term 5198 Vaginal Delivery Chuck Calculation Initial Chuck Date Initial Exam Date Initial Exam Provider Initial Ultrasound Date Last Menstrual Period Date Ultra Sound Weeks Gestation 0 Eighteen To Twenty Week Chuck Update [...] Domestic Partner Domestic Partner Phone Father Name Gang Bore Operator Status 06/16/20 20 1 CLOSED Fetus Data First Name Last Name Admitted to NICU Weight (g) Sex Living Outcome Pediatric Complications Fetus ID Race Codes Race Delivery Type Full Term 5200 Vaginal Delivery Chuck Calculation Initial Chuck Date Initial Exam Date Initial Exam Provider Initial Ultrasound Date Last Menstrual Period Date Ultra Sound Weeks Gestation 0 Eighteen To Twenty Week Chuck Update [...]
--- OUTSIDE RECORDS SUMMARY | 2025-07-06 08:50 | XMS_ITS | Clinical Summary ---
[facility] Organization [facility] Address [address] [place]: Epic Prelude ADT [place] [address] Care Team Providers Care Group Fitness Assistant Department Head Name Role Phone Unavailable Primary Care Provider Unavailabl e Medications lidocaine (XYLOCAINE) 2 % Solution SWISH AND SPIT OR SWALLOW 10 ML BY MOUTH 3 TIMES DAILY NEEDED FOR THROAT PAIN. 300 mL 06/05/2024 1:05 PM CDT 4 Active nitrofurantoin (MACROBID) 100 mg capsule Take 1 capsule by mouth every 12 hours for 7 days; must administer with a meal/food 14 Capsule 07/14/2024 12:50 PM NURSE STAFF [facility] 4 Active levothyroxine 50 mcg tablet Take 1 Tablet (50 mcg) by mouth daily. 90 Tablet 1 12/05/2024 11:24 AM CDT 5 Active nitrofurantoin (MACROBID) 100 mg capsule Take 1 Capsule (100 mg) by mouth every 12 hours for 7 days. Must administer with a meal/food. 14 Capsule 02/16/2025 12:10 PM CDT 5 Active Social History Tobacco Use Types Packs/Day Years Used Date Smoking Tobacco: Never Assessed Comments Unknown Sex and Gender Information Value Date Recorded Sex Assigned at Not on file Legal Sex Female 3:27 PM CDT Gender Identity Not on file Sexual Orientation Not on file Plan of Treatment Health Maintenance Due Date Last Done Comments DTAP/TDAP/TD VACCINES (1 - Tdap) 01/10/2008 HEPATITIS B VACCINES (1 of 3 - 19+ 3-dose series) 11/2007 HPV/Cotest (21-29) 2010 HPV VACCINES (1 - 3-dose SCDM series) 01/10/2016 CERVICAL CANCER SCREENING 2019 HPV/Cotest (30-65) 2019 PAP SMEAR 2019 INFLUENZA VACCINE (#1) 2025 Insurance [employer]
== END 2025-07-06 08:35 | disposition home or self-care (01) ==
LOC: ANHGOSHLAB 08:35
PROVIDERS: PCP Family Medicine; Visit Provider Nurse Practitioner Family
DX: E03.8 Other specified hypothyroidism (principal)
CPT/HCPCS: 36415